=== PATIENT | male | born 1960 | race Caucasian/White ===

== ENCOUNTER 2020-12-01 04:42 | Inpatient (IN) | payer OTHER, MEDICARE ==
[~2020-12-01] VITALS: Ht 185.4 cm; Wt 109.1 kg
[~2020-12-01 04:42] MED LIST: ACAM333T8 PO; ASPI-611 PO; CLON0.3T36 PO; FLUO-167 PO; GLIP10TA11 PO; HYDR-4070 PO; LISI40TA13 PO; METO-411 PO; NORT10CA2 PO; OMEP-50 PO; PRAV80TA3 PO; TERA2CAP4 PO
[2020-12-01] MEDS ORDERED: LORazepam 2 mg/ml vial IV ONE ×3 (05:30→06:35)
[2020-12-01] MEDS ORDERED: normal saline 1000ML IV soln IVB ONE ×2 (05:30→06:35)
[2020-12-01 05:49] LABS: BASOPHILS % (AUTO) 0.2 % (0-1); EOSINOPHILS % (AUTO) 0.1 % (0-6); HEMATOCRIT 40.3 % (42.0-52.0); HEMOGLOBIN 13.4 g/dl (14.0-17.9); LYMPHOCYTES % (AUTO) 6.2 % (21-51); MEAN CORPUSCULAR HEMOGLOBIN 29.8 PG (27.0-31.0); MEAN CORPUSCULAR HGB CONC 33.3 g/dL (33.0-36.5); MEAN CORPUSCULAR VOLUME 89.5 FL (78-98); MEAN PLATELET VOLUME 9.2 FL (7.4-10.4); MONOCYTES # (AUTO) 1.2 X10'3 (0-0.9); MONOCYTES % (AUTO) 7.2 % (2-12); NEUTROPHILS # (AUTO) 13.7 X10'3 (1.8-7.7); NEUTROPHILS % (AUTO) 86.3 % (42-75); PLATELET COUNT 212 X10'3 (140-440); RED CELL DISTRIBUTION WIDTH 15.9 % (11.5-14.5); WHITE BLOOD COUNT 15.9 X10'3 (4.5-11.0)
[2020-12-01] MEDS ORDERED: LORazepam 2 mg/ml vial ONE (06:08)
[2020-12-01 06:10] LABS: ALANINE AMINOTRANSFERASE 24 U/L (12-78); ALBUMIN 3.9 G/DL (3.4-5.0); ALBUMIN/GLOBULIN RATIO 1.1 (1.1-1.5); ALKALINE PHOSPHATASE 67 IU/L (46-116); ANION GAP 19 (8-16); ASPARTATE AMINO TRANSFERASE 32 U/L (10-37); BILIRUBIN,TOTAL 0.5 MG/DL (0.1-1.0); BLOOD UREA NITROGEN 13 MG/DL (7-18); BUN/CREATININE RATIO 11.2 (5.4-32.0); CALCIUM 8.1 MG/DL (8.5-10.1); CHLORIDE 101 MMOL/L (99-107); CREATININE 1.16 MG/DL (0.60-1.10); GLUCOSE 211 MG/DL (70-104); POTASSIUM 4.3 MMOL/L (3.5-5.1); SODIUM 138 MMOL/L (135-145); TOTAL PROTEIN 7.4 G/DL (6.4-8.2); eGFR 64 ML/MIN
[2020-12-01 06:16] LABS: ETHANOL < 0.010 GM/DL (0.0-0.010); LIPASE 57 U/L (73-393)
[2020-12-01] MEDS ORDERED: ondansetron/PF 4mg/2ml inj IV ONE (06:35)
[2020-12-01] MEDS ORDERED: metoprolol succinate 25mg (24-HOUR) SR. Tablet PO ONE (06:50)
[2020-12-01] MEDS ORDERED: cloNIDine 0.1 mg tablet PO ONE (06:50)
[2020-12-01] MEDS ORDERED: hyDRALAzine 10mg tablet PO SCH (06:50)
[2020-12-01] MEDS ORDERED: lisinopril 20mg tablet PO ONE (06:55)
--- NOTE | 2020-12-01 07:10 | NUR ---
Spoke with Dr. Mujica regarding x2 blood pressure medications PO, Dr. mujica stated that they were all ordered because thats what patient takes at home and has not been able to take medications for the last 2 days. Will administer medications as prescribed.
[2020-12-01] MEDS ORDERED: aspirin 81mg tab.chew PO ONE (07:40)
[2020-12-01] MEDS ORDERED: nitroGLYCERIN 0.4mg/hour patch TD ONE (07:40)
[2020-12-01] MEDS ORDERED: potassium Cl 40MEQ/1/2NS 520ml 520 ML IV PRN ×2 (08:05)
[2020-12-01] MEDS ORDERED: ondansetron/PF 4mg/2ml inj IV PRN (08:05)
[2020-12-01] MEDS ORDERED: magnesium Cl slow-release 64mg tablet PO PRN (08:05)
[2020-12-01] MEDS ORDERED: acetaminophen 325mg tablet PO PRN (08:05)
[2020-12-01] MEDS ORDERED: magnesium 2GM in 50ml NS 50 ML IV PRN (08:05)
[2020-12-01] MEDS ORDERED: magnesium 4gm in 100ml NS 100 ML IV PRN (08:05)
[2020-12-01] MEDS ORDERED: potassium Cl 20 mEq SR tablet PO PRN ×2 (08:05)
[2020-12-01 08:36] LABS: CLARITY,URINE CLEAR (Clear); COLOR,URINE YELLOW (Yellow); GLUCOSE, URINE 100 mg/dl (Neg); KETONES,URINE 15 mg/dl (Neg); LEUKOCYTE ESTERASE ,URINE NEGATIVE (Neg); NITRITES, URINE NEGATIVE (Neg); OCCULT BLOOD,URINE NEGATIVE (Neg); PH,URINE 5.5 (4.8-8.0); PROTEIN,URINE 30 mg/dl (Neg); UROBILINOGEN,URINE 0.2 E.U/dL (0.2-1.0)
[2020-12-01 08:37] LABS: UA COLLECTION TYPE VOIDED
[2020-12-01 08:47] LABS: BACTERIA,URINE NONE SEEN /HPF (Neg); MUCUS STRANDS FEW /LPF (Neg); RBC,URINE NONE SEEN /HPF (0-2); SQUAMOUS EPITHELIAL CELL,UR FEW /LPF (FEW)
[2020-12-01 08:48] LABS: FINE GRANULAR CAST 0-3 /LPF (NEGATIVE); WBC,URINE 0-4 /HPF (0-4)
[2020-12-01 08:50] LABS: URINE AMPHETAMINE SCREEN NEGATIVE (Neg); URINE BARBITUATE SCREEN NEGATIVE (Neg); URINE BENZODIAZEPINES SCREEN NEGATIVE (Neg); URINE CANNABINOID SCREEN NEGATIVE (Neg); URINE COCAINE SCREEN NEGATIVE (Neg); URINE METHADONE SCREEN NEGATIVE (Neg); URINE OPIATE SCREEN NEGATIVE (Neg); URINE PHENCYCLIDINE SCREEN NEGATIVE (Neg)
--- NOTE | 2020-12-01 10:15 | NUR ---
report received from ER charge Caitlin RN. All questions answered in preparation to assume pt care on telemetry floor.
[2020-12-01] MEDS ORDERED: HYDR-4069 PO (10:27)
[2020-12-01] MEDS ORDERED: CARV25TA2 PO (10:28)
[2020-12-01 11:30] VITALS: BP 169/96
[2020-12-01] MEDS ORDERED: METF-438 PO (11:36)
[2020-12-01] MEDS ORDERED: thiamine inj. 100 MG in normal saline 100ml IV soln 99 ML IV SCH (14:03)
[2020-12-01] MEDS: LORazepam 1 MG tablet PO PRN ×2 (14:14→20:14)
[2020-12-01 15:00] VITALS: BP 169/90
[2020-12-01] MEDS ORDERED: chlordiazePOXIDE 25mg capsule PO SCH (16:00)
[2020-12-01] MEDS: normal saline 1000ml 1,000 ML IV SCH ×3 (16:15→23:56)
[2020-12-01] MEDS: folic acid 1mg/0.2ml inj IV SCH (16:16)
[2020-12-01] MEDS: multivitamins, therapeutics tablet PO SCH (16:16)
[2020-12-01] MEDS: chlordiazePOXIDE 5mg capsule PO SCH (16:24)
--- NOTE | 2020-12-01 17:39 | NUR ---
Paged Dr. Burden secondary to high SBP. PAGER ID: [phone] MESSAGE: RE: johnson Fair: FM [id number]" BP 176/93. Do you want to do anything prn for HTN? -Taylor #[phone]
[2020-12-01 17:50] VITALS: BP 176/93
[2020-12-01] MEDS: hyDRALAzine 10mg tablet PO SCH (18:04)
--- NOTE | 2020-12-01 18:08 | NUR ---
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 states his left eye always stings and choi at baseline.
--- NOTE | 2020-12-01 18:08 | NUR ---
New order noted for hydralazine. med given.
--- NOTE | 2020-12-01 18:28 | NUR ---
Problems reprioritized. Patient report given, questions answered & plan of care reviewed with Prudence RN.
--- NOTE | 2020-12-01 18:51 | NUR ---
Patient in room PCU 3017. I have received report from TAVO READ and had the opportunity to ask questions and assume patient care.
[2020-12-01 19:58] VITALS: BP 171/93
[2020-12-01] MEDS: K and/or MAG REPLACEMENT MC SCH (20:00)
[2020-12-01] MEDS: glipizide 5mg tablet PO SCH (20:14)
[2020-12-01] MEDS: cloNIDine 0.1 mg tablet PO SCH (20:15)
[2020-12-01] MEDS: metFORMIN 500mg tablet PO SCH (20:15)
[2020-12-01] MEDS: Terazosin 1mg capsule PO SCH (20:17)
[2020-12-01] MEDS: terazosin 5mg capsule PO SCH (20:18)
[2020-12-01] MEDS: nortriptyline 10mg capsule PO SCH (20:18)
[2020-12-01] MEDS: pravastatin 40mg tablet PO SCH (20:21)
[2020-12-01] MEDS ORDERED: thiamine inj. 100 MG in normal saline 100ml IV soln 100 ML IV SCH (21:34)
[2020-12-01 22:00] VITALS: BP 151/81
[2020-12-02 02:00] VITALS: BP 155/84
--- NOTE | 2020-12-02 06:23 | NUR ---
Patient in room PCU 3017. I have received report from YVES READ and had the opportunity to ask questions and assume patient care.
--- NOTE | 2020-12-02 06:31 | NUR ---
Patient in room PCU 3017. I have received report from Leah READ and had the opportunity to ask questions and assume patient care.
[2020-12-02 07:03] LABS: BASOPHILS % (AUTO) 0.7 % (0-1); EOSINOPHILS # (AUTO) 0.2 X10'3 (0-0.9); EOSINOPHILS % (AUTO) 3.8 % (0-6); HEMOGLOBIN 10.7 g/dl (14.0-17.9); MEAN CORPUSCULAR HEMOGLOBIN 30.2 PG (27.0-31.0); MEAN CORPUSCULAR HGB CONC 33.5 g/dL (33.0-36.5); MEAN PLATELET VOLUME 8.9 FL (7.4-10.4); MONOCYTES # (AUTO) 0.6 X10'3 (0-0.9); NEUTROPHILS # (AUTO) 4.7 X10'3 (1.8-7.7); NEUTROPHILS % (AUTO) 71.5 % (42-75); PLATELET COUNT 133 X10'3 (140-440); RED BLOOD COUNT 3.55 X10'6 (4.70-6.10); RED CELL DISTRIBUTION WIDTH 15.3 % (11.5-14.5); WHITE BLOOD COUNT 6.5 X10'3 (4.5-11.0)
[2020-12-02 07:19] LABS: ALBUMIN 2.9 G/DL (3.4-5.0); ANION GAP 10 (8-16); BLOOD UREA NITROGEN 12 MG/DL (7-18); CALCIUM 7.5 MG/DL (8.5-10.1); CHLORIDE 109 MMOL/L (99-107); CHOLESTEROL 132 MG/DL (0-200); CREATININE 0.86 MG/DL (0.60-1.10); GLUCOSE 110 MG/DL (70-104); HDL CHOLESTEROL 67 MG/DL (35-60); LDL CHOLESTEROL 46 MG/DL (50-100); POTASSIUM 3.5 MMOL/L (3.5-5.1); SODIUM 141 MMOL/L (135-145); TOTAL CARBON DIOXIDE 22.3 MMOL/L (24-32); TRIGLYCERIDES 67 MG/DL (20-135); eGFR 90 ML/MIN
[2020-12-02] MEDS: K and/or MAG REPLACEMENT MC SCH ×2 (08:00→20:00)
[2020-12-02] MEDS: normal saline 1000ml 1,000 ML IV SCH ×2 (08:23→17:13)
[2020-12-02] MEDS: FLUoxetine 20mg capsule PO SCH (08:23)
[2020-12-02] MEDS: glipizide 5mg tablet PO SCH ×2 (08:24→17:14)
[2020-12-02] MEDS: multivitamins, therapeutics tablet PO SCH (08:25)
[2020-12-02] MEDS: chlordiazePOXIDE 5mg capsule PO SCH ×2 (08:25→17:19)
[2020-12-02] MEDS: lisinopril 20mg tablet PO SCH (08:32)
[2020-12-02] MEDS: cloNIDine 0.1 mg tablet PO SCH ×2 (08:32→20:36)
[2020-12-02] MEDS: metoprolol succinate 25mg (24-HOUR) SR. Tablet PO SCH (08:32)
[2020-12-02] MEDS: pantoprazole 40mg Tablet.DR PO SCH (08:33)
[2020-12-02] MEDS: metFORMIN 500mg tablet PO SCH ×2 (08:33→20:36)
[2020-12-02] MEDS: hyDRALAzine 10mg tablet PO SCH ×3 (08:33→17:19)
[2020-12-02] MEDS: LORazepam 1 MG tablet PO PRN ×3 (08:41→17:19)
[2020-12-02 11:00] VITALS: BP 175/105
[2020-12-02] MEDS: folic acid 1mg/0.2ml inj IV SCH (11:03)
[2020-12-02] MEDS ORDERED: CHLO25CA10 PO (11:36)
[2020-12-02 14:48] VITALS: BP 155/80
[2020-12-02 18:00] VITALS: BP 201/109
[2020-12-02] MEDS: Terazosin 1mg capsule PO SCH (20:35)
[2020-12-02] MEDS: nortriptyline 10mg capsule PO SCH (20:36)
[2020-12-02] MEDS: pravastatin 40mg tablet PO SCH (20:36)
[2020-12-02 21:00] VITALS: BP 176/103
[2020-12-02] MEDS: terazosin 5mg capsule PO SCH (21:00)
[2020-12-02 22:00] VITALS: BP 187/100
[2020-12-03] MEDS: chlordiazePOXIDE 5mg capsule PO SCH ×2 (00:20→07:36)
[2020-12-03] MEDS: terazosin 5mg capsule PO SCH (00:20)
[2020-12-03 02:24] VITALS: BP 160/82
[2020-12-03] MEDS: normal saline 1000ml 1,000 ML IV SCH (02:58)
[2020-12-03 06:00] VITALS: BP 171/107
--- NOTE | 2020-12-03 06:23 | NUR ---
received report from jose antonio tadeo
[2020-12-03 06:50] LABS: BASOPHILS % (AUTO) 0.7 % (0-1); EOSINOPHILS # (AUTO) 0.4 X10'3 (0-0.9); EOSINOPHILS % (AUTO) 6.6 % (0-6); HEMATOCRIT 37.2 % (42.0-52.0); HEMOGLOBIN 12.5 g/dl (14.0-17.9); LYMPHOCYTES # (AUTO) 1.3 X10'3 (1.1-4.8); LYMPHOCYTES % (AUTO) 24.9 % (21-51); MEAN CORPUSCULAR HEMOGLOBIN 30.5 PG (27.0-31.0); MEAN CORPUSCULAR HGB CONC 33.6 g/dL (33.0-36.5); MEAN CORPUSCULAR VOLUME 90.7 FL (78-98); MEAN PLATELET VOLUME 9.5 FL (7.4-10.4); MONOCYTES # (AUTO) 0.5 X10'3 (0-0.9); MONOCYTES % (AUTO) 9.7 % (2-12); NEUTROPHILS # (AUTO) 3.1 X10'3 (1.8-7.7); NEUTROPHILS % (AUTO) 58.1 % (42-75); PLATELET COUNT 151 X10'3 (140-440); RED CELL DISTRIBUTION WIDTH 15.5 % (11.5-14.5); WHITE BLOOD COUNT 5.3 X10'3 (4.5-11.0)
[2020-12-03 06:55] LABS: ALBUMIN 3.4 G/DL (3.4-5.0); ANION GAP 11 (8-16); BLOOD UREA NITROGEN 7 MG/DL (7-18); BUN/CREATININE RATIO 7.6 (5.4-32.0); CALCIUM 8.3 MG/DL (8.5-10.1); CHLORIDE 106 MMOL/L (99-107); CREATININE 0.92 MG/DL (0.60-1.10); GLUCOSE 124 MG/DL (70-104); MAGNESIUM 1.9 MG/DL (1.5-2.4); POTASSIUM 3.5 MMOL/L (3.5-5.1); SODIUM 142 MMOL/L (135-145); TOTAL CARBON DIOXIDE 24.8 MMOL/L (24-32); eGFR 83 ML/MIN
[2020-12-03] MEDS: K and/or MAG REPLACEMENT MC SCH (07:19)
[2020-12-03] MEDS: metoprolol succinate 25mg (24-HOUR) SR. Tablet PO SCH (07:31)
[2020-12-03] MEDS: metFORMIN 500mg tablet PO SCH (07:32)
[2020-12-03] MEDS: lisinopril 20mg tablet PO SCH (07:32)
[2020-12-03] MEDS: hyDRALAzine 10mg tablet PO SCH (07:33)
[2020-12-03] MEDS: pantoprazole 40mg Tablet.DR PO SCH (07:33)
[2020-12-03] MEDS: multivitamins, therapeutics tablet PO SCH (07:33)
[2020-12-03] MEDS: FLUoxetine 20mg capsule PO SCH (07:33)
[2020-12-03] MEDS: cloNIDine 0.1 mg tablet PO SCH (07:35)
[2020-12-03] MEDS: glipizide 5mg tablet PO SCH (07:35)
[2020-12-03 07:40] VITALS: BP 193/115
--- NOTE | 2020-12-03 07:41 | NUR ---
not all medications scanned into [facility], checked all meds prior to admin
[2020-12-03] MEDS ORDERED: folic acid 1mg tablet PO SCH (08:00)
[2020-12-03] MEDS ORDERED: thiamine 100mg tablet PO SCH (08:00)
[2020-12-03 09:43] VITALS: BP 155/84
--- NOTE | 2020-12-03 11:40 | NUR ---
PT D/C WITH INSTRUCTIONS, UNDERSTANDING OF INSTRUCTIONS, AND W/ALL BELONGINGS INCLUDING HOME MEDICATION IN WHEELCHAIR ACCOMPANIED BY NURSING STAFF IN WHEELCHAIR TO CAB TO GO HOME AND F/U W/PCP
== END 2020-12-03 11:15 | disposition home or self-care (01) | DRG 897 ==
LOC: ER 04:43 → ED HOLD 08:06 → PCU 3S 12:19
PROVIDERS: ADMIT Internal Medicine; ATTEND Internal Medicine
PROC: 5A09357 Assistance with Respiratory Ventilation, Less than 24 Consecutive Hours, Continuous Positive Airway Pressure (ICD-10-PCS; principal; 2020-12-02)
PROC: 5A09357 Assistance with Respiratory Ventilation, Less than 24 Consecutive Hours, Continuous Positive Airway Pressure (ICD-10-PCS; 2020-12-03)
DX: F10.230 Alcohol dependence with withdrawal, uncomplicated (principal); E11.9 Type 2 diabetes mellitus without complications; E78.5 Hyperlipidemia, unspecified; F32.9 Major depressive disorder, single episode, unspecified; F41.9 Anxiety disorder, unspecified; G47.30 Sleep apnea, unspecified; R77.8 Other specified abnormalities of plasma proteins; I10 Essential (primary) hypertension; K21.9 Gastro-esophageal reflux disease without esophagitis; N40.0 Benign prostatic hyperplasia without lower urinary tract symptoms; Z79.84 Long term (current) use of oral hypoglycemic drugs; Z86.79 Personal history of other diseases of the circulatory system; Z87.891 Personal history of nicotine dependence; Z95.810 Presence of automatic (implantable) cardiac defibrillator; Z88.0 Allergy status to penicillin; Z81.0 Family history of intellectual disabilities; Z80.42 Family history of malignant neoplasm of prostate
CPT/HCPCS: 36415; 71045; 80048; 80053; 80061; 80305; 80320; 81001; 82948; 83690; 83735; 84484; 85025; 87081; 93005; 96375; 96376; 99285; G0378; J2060; J2405; J3411; J3490; J7030

== ENCOUNTER 2021-01-11 13:13 | Inpatient (IN) | payer OTHER, MEDICARE ==
[~2021-01-11] VITALS: Ht 188 cm; Wt 128.4 kg
[~2021-01-11 13:13] MED LIST changes: -ACAM333T8 PO; -ASPI-611 PO; +CHLO25CA10 PO; +HYDR-4069 PO; -HYDR-4070 PO; +METF-438 PO
[2021-01-11] MEDS ORDERED: folic acid 1mg/0.2ml inj IV ONE ×2 (13:25→14:20)
[2021-01-11] MEDS ORDERED: thiamine 100mg/ml 2ml inj. IV ONE ×2 (13:25→14:20)
[2021-01-11] MEDS ORDERED: normal saline 1000ML IV soln IVB ONE (13:25)
[2021-01-11] MEDS ORDERED: LORazepam 2 mg/ml vial IV ONE (13:50)
[2021-01-11] MEDS ORDERED: LIDOcaine 1% W/epiNEPHrine 1:200,000 10ml vial IJ ONE (13:50)
[2021-01-11] MEDS ORDERED: normal saline 1000ml 1,000 ML IV ONE (13:50)
[2021-01-11] MEDS ORDERED: bacitracin 15gm ointment TP ONE (13:50)
[2021-01-11 13:51] LABS: ALANINE AMINOTRANSFERASE 24 U/L (12-78); ALBUMIN 3.5 G/DL (3.4-5.0); ALKALINE PHOSPHATASE 90 IU/L (46-116); ANION GAP 15 (8-16); ASPARTATE AMINO TRANSFERASE 20 U/L (10-37); BILIRUBIN,TOTAL 0.3 MG/DL (0.1-1.0); BLOOD UREA NITROGEN 13 MG/DL (7-18); BUN/CREATININE RATIO 9.6 (5.4-32.0); CALCIUM 8.6 MG/DL (8.5-10.1); CHLORIDE 103 MMOL/L (99-107); CREATININE 1.35 MG/DL (0.60-1.10); GLUCOSE 306 MG/DL (70-104); POTASSIUM 4.4 MMOL/L (3.5-5.1); SODIUM 136 MMOL/L (135-145); TOTAL CARBON DIOXIDE 18.4 MMOL/L (24-32); eGFR 54 ML/MIN
[2021-01-11 13:58] LABS: ETHANOL 0.056 GM/DL (0.0-0.010); MAGNESIUM 2.1 MG/DL (1.5-2.4)
[2021-01-11 14:16] LABS: BASOPHILS % (AUTO) 0.6 % (0-1); EOSINOPHILS # (AUTO) 0.1 X10'3 (0-0.9); EOSINOPHILS % (AUTO) 1.1 % (0-6); HEMATOCRIT 39.3 % (42.0-52.0); HEMOGLOBIN 12.8 g/dl (14.0-17.9); LYMPHOCYTES # (AUTO) 1.2 X10'3 (1.1-4.8); LYMPHOCYTES % (AUTO) 14.6 % (21-51); MEAN CORPUSCULAR HEMOGLOBIN 28.7 PG (27.0-31.0); MEAN CORPUSCULAR HGB CONC 32.5 g/dL (33.0-36.5); MEAN CORPUSCULAR VOLUME 88.3 FL (78-98); MEAN PLATELET VOLUME 9.5 FL (7.4-10.4); MONOCYTES # (AUTO) 0.5 X10'3 (0-0.9); MONOCYTES % (AUTO) 6.5 % (2-12); NEUTROPHILS # (AUTO) 6.2 X10'3 (1.8-7.7); NEUTROPHILS % (AUTO) 77.2 % (42-75); PLATELET COUNT 178 X10'3 (140-440); RED BLOOD COUNT 4.46 X10'6 (4.70-6.10); RED CELL DISTRIBUTION WIDTH 15.8 % (11.5-14.5); WHITE BLOOD COUNT 8.1 X10'3 (4.5-11.0)
[2021-01-11] MEDS: LORazepam 2 mg/ml vial IV ONE ×2 (14:41→15:31)
[2021-01-11] MEDS ORDERED: ondansetron/PF 4mg/2ml inj IV PRN (16:10)
[2021-01-11] MEDS ORDERED: potassium Cl 40MEQ/1/2NS 520ml 520 ML IV PRN ×2 (16:10)
[2021-01-11] MEDS ORDERED: magnesium hydroxide 30ml (MOM) UD suspension PO PRN (16:10)
[2021-01-11] MEDS ORDERED: mag hydrox/Alum hydrox/simeth 30ml oral suspension PO PRN (16:10)
[2021-01-11] MEDS ORDERED: magnesium 2GM in 50ml NS 50 ML IV PRN (16:10)
[2021-01-11] MEDS ORDERED: magnesium 4gm in 100ml NS 100 ML IV PRN (16:10)
[2021-01-11] MEDS ORDERED: potassium Cl 20 mEq SR tablet PO PRN ×2 (16:10)
[2021-01-11] MEDS ORDERED: magnesium Cl slow-release 64mg tablet PO PRN (16:10)
[2021-01-11] MEDS ORDERED: acetaminophen 325mg tablet PO PRN ×2 (16:10)
[2021-01-11] MEDS ORDERED: haloperidol 5mg tablet PO PRN (16:15)
[2021-01-11] MEDS ORDERED: haloperidol lactate 5mg/ml inj IM PRN (16:15)
[2021-01-11] MEDS ORDERED: LORazepam 2 mg/ml vial IV PRN (16:15)
[2021-01-11] MEDS ORDERED: insulin Lispro (HumaLOG) vial - multi-dose SQ SCH (16:35)
[2021-01-11] MEDS ORDERED: dextrose 50%-water 50ml dispensing syringe IV PRN ×2 (16:35)
[2021-01-11] MEDS ORDERED: MESSAGE TO PHARMACY PO ONE (16:35)
[2021-01-11] MEDS ORDERED: dextrose ORAL solution 15 GM/59 ML bottle PO PRN ×2 (16:35)
[2021-01-11] MEDS ORDERED: glucagon, human recombinant 1mg kit SUBCUT PRN (16:35)
[2021-01-11] MEDS: normal saline 1000ml 1,000 ML IV SCH (16:51)
[2021-01-11 17:31] LABS: HEMOGLOBIN A1C 7.3 % (4.5-6.2)
[2021-01-11] MEDS: heparin, porcine 5000 units/ml vial SQ SCH (19:33)
[2021-01-11] MEDS: docusate sod 100mg capsule PO SCH (19:33)
[2021-01-11] MEDS: K and/or MAG REPLACEMENT MC SCH (19:34)
[2021-01-11] MEDS ORDERED: temazepam 15mg capsule PO PRN (21:00)
[2021-01-11] MEDS: insulin glargine (Lantus) pen - multi-dose SQ SCH (21:00)
--- NOTE | 2021-01-12 02:30 | NUR ---
called dr Giles for blood pressure elevation. new order for clonidine 0.3
[2021-01-12] MEDS ORDERED: cloNIDine 0.1 mg tablet PO STA (02:46)
[2021-01-12] MEDS: normal saline 1000ml 1,000 ML IV SCH ×3 (02:53→22:10)
[2021-01-12 03:25] LABS: BASOPHILS % (AUTO) 0.4 % (0-1); EOSINOPHILS # (AUTO) 0.3 X10'3 (0-0.9); EOSINOPHILS % (AUTO) 4.5 % (0-6); HEMATOCRIT 33.7 % (42.0-52.0); HEMOGLOBIN 11.3 g/dl (14.0-17.9); LYMPHOCYTES # (AUTO) 1.4 X10'3 (1.1-4.8); LYMPHOCYTES % (AUTO) 22.7 % (21-51); MEAN CORPUSCULAR HEMOGLOBIN 29.9 PG (27.0-31.0); MEAN CORPUSCULAR HGB CONC 33.4 g/dL (33.0-36.5); MEAN CORPUSCULAR VOLUME 89.4 FL (78-98); MEAN PLATELET VOLUME 9.2 FL (7.4-10.4); MONOCYTES # (AUTO) 0.6 X10'3 (0-0.9); MONOCYTES % (AUTO) 10.4 % (2-12); NEUTROPHILS # (AUTO) 3.8 X10'3 (1.8-7.7); PLATELET COUNT 144 X10'3 (140-440); RED BLOOD COUNT 3.77 X10'6 (4.70-6.10); RED CELL DISTRIBUTION WIDTH 15.5 % (11.5-14.5); WHITE BLOOD COUNT 6.1 X10'3 (4.5-11.0)
[2021-01-12 03:45] LABS: ALANINE AMINOTRANSFERASE 20 U/L (12-78); ALBUMIN 2.9 G/DL (3.4-5.0); ALBUMIN/GLOBULIN RATIO 0.9 (1.1-1.5); ALKALINE PHOSPHATASE 77 IU/L (46-116); ANION GAP 11 (8-16); ASPARTATE AMINO TRANSFERASE 19 U/L (10-37); BILIRUBIN,TOTAL 0.6 MG/DL (0.1-1.0); BLOOD UREA NITROGEN 16 MG/DL (7-18); BUN/CREATININE RATIO 14.2 (5.4-32.0); CALCIUM 7.6 MG/DL (8.5-10.1); CHLORIDE 108 MMOL/L (99-107); CREATININE 1.13 MG/DL (0.60-1.10); GLUCOSE 160 MG/DL (70-104); LIPASE 55 U/L (73-393); MAGNESIUM 1.9 MG/DL (1.5-2.4); PHOSPHORUS 3.1 MG/DL (2.3-4.5); POTASSIUM 4.2 MMOL/L (3.5-5.1); SODIUM 141 MMOL/L (135-145); TOTAL CARBON DIOXIDE 22.1 MMOL/L (24-32); eGFR 66 ML/MIN
--- NOTE | 2021-01-12 06:23 | NUR ---
Patient in room ED 2. I have received report from YOU READ and had the opportunity to ask questions and assume patient care.
--- NOTE | 2021-01-12 06:35 | NUR ---
Patient in room ED 2. I have received report from John brady and had the opportunity to ask questions and assume patient care.
[2021-01-12 07:30] VITALS: BP 205/139
[2021-01-12] MEDS: docusate sod 100mg capsule PO SCH ×2 (07:49→20:00)
[2021-01-12] MEDS: heparin, porcine 5000 units/ml vial SQ SCH ×2 (07:50→20:29)
[2021-01-12] MEDS: LORazepam 1 MG tablet PO PRN ×3 (07:51→16:32)
[2021-01-12] MEDS: K and/or MAG REPLACEMENT MC SCH ×2 (08:00→20:00)
--- NOTE | 2021-01-12 08:09 | NUR ---
PAGER ID: [phone] MESSAGE: JESSICA READ [id number] RE: GUERITA Gallagher [id number]. PLEASE ADDRESS MED REC. PTS BP 205/139. THANK YOU
[2021-01-12] MEDS: cloNIDine 0.1 mg tablet PO SCH ×2 (09:26→20:27)
[2021-01-12] MEDS: pantoprazole 40mg Tablet.DR PO SCH (09:26)
[2021-01-12] MEDS: lisinopril 20mg tablet PO SCH (09:28)
[2021-01-12] MEDS ORDERED: hyDRALAzine 10mg tablet PO PRN (09:55)
[2021-01-12] MEDS: metoprolol succinate 25mg (24-HOUR) SR. Tablet PO SCH (10:34)
[2021-01-12 11:00] VITALS: BP 196/118
[2021-01-12] MEDS ORDERED: morphine 2 MG/ML inj. syringe IV PRN (12:00)
[2021-01-12] MEDS ORDERED: HYDROcodone/acetaminophen 5mg/325mg tablet PO PRN (12:00)
[2021-01-12] MEDS: hyDRALAzine 10mg tablet PO SCH ×2 (12:30→18:00)
[2021-01-12 13:00] VITALS: BP 164/94
[2021-01-12 15:00] VITALS: BP 169/98
--- NOTE | 2021-01-12 15:24 | NUR ---
Noted pt with T2DM, well controlled with A1c 7.3%. Written DM education with RD contact information placed in patient's chart. Will continue to follow. Addendum: 01/12/21 at [address] Amended: Links added.
[2021-01-12 19:00] VITALS: BP 180/107
--- NOTE | 2021-01-12 19:03 | NUR ---
Problems reprioritized. Patient report given, questions answered & plan of care reviewed with Carina brady.
[2021-01-12] MEDS ORDERED: nortriptyline 10mg capsule PO SCH (21:00)
[2021-01-12] MEDS ORDERED: terazosin 5mg capsule PO SCH (21:00)
[2021-01-12] MEDS: insulin glargine (Lantus) pen - multi-dose SQ SCH (21:00)
[2021-01-12] MEDS ORDERED: Terazosin 1mg capsule PO SCH (21:00)
[2021-01-12] MEDS ORDERED: atorvastatin 20mg tablet PO SCH (21:00)
[2021-01-12 23:00] VITALS: BP 134/65
--- NOTE | 2021-01-13 02:49 | NUR ---
Patient refused vitals signs, wanted to sleep
[2021-01-13 06:00] VITALS: BP 212/121
[2021-01-13 06:24] LABS: BASOPHILS % (AUTO) 0.7 % (0-1); EOSINOPHILS # (AUTO) 0.5 X10'3 (0-0.9); EOSINOPHILS % (AUTO) 9.3 % (0-6); HEMATOCRIT 34.8 % (42.0-52.0); HEMOGLOBIN 11.6 g/dl (14.0-17.9); LYMPHOCYTES # (AUTO) 1.3 X10'3 (1.1-4.8); LYMPHOCYTES % (AUTO) 25.7 % (21-51); MEAN CORPUSCULAR HEMOGLOBIN 29.8 PG (27.0-31.0); MEAN CORPUSCULAR HGB CONC 33.3 g/dL (33.0-36.5); MEAN CORPUSCULAR VOLUME 89.6 FL (78-98); MEAN PLATELET VOLUME 9.6 FL (7.4-10.4); MONOCYTES # (AUTO) 0.5 X10'3 (0-0.9); MONOCYTES % (AUTO) 9.9 % (2-12); NEUTROPHILS # (AUTO) 2.8 X10'3 (1.8-7.7); NEUTROPHILS % (AUTO) 54.4 % (42-75); PLATELET COUNT 136 X10'3 (140-440); RED BLOOD COUNT 3.88 X10'6 (4.70-6.10); RED CELL DISTRIBUTION WIDTH 15.4 % (11.5-14.5); WHITE BLOOD COUNT 5.2 X10'3 (4.5-11.0)
[2021-01-13 06:25] LABS: ALANINE AMINOTRANSFERASE 18 U/L (12-78); ALBUMIN 2.8 G/DL (3.4-5.0); ALKALINE PHOSPHATASE 87 IU/L (46-116); ANION GAP 10 (8-16); ASPARTATE AMINO TRANSFERASE 18 U/L (10-37); BILIRUBIN,TOTAL 0.5 MG/DL (0.1-1.0); BLOOD UREA NITROGEN 9 MG/DL (7-18); BUN/CREATININE RATIO 9.3 (5.4-32.0); CALCIUM 8.3 MG/DL (8.5-10.1); CHLORIDE 106 MMOL/L (99-107); CREATININE 0.97 MG/DL (0.60-1.10); GLUCOSE 157 MG/DL (70-104); LIPASE < 50 U/L (73-393); MAGNESIUM 2.1 MG/DL (1.5-2.4); PHOSPHORUS 3.2 MG/DL (2.3-4.5); POTASSIUM 3.9 MMOL/L (3.5-5.1); SODIUM 139 MMOL/L (135-145); TOTAL CARBON DIOXIDE 22.6 MMOL/L (24-32); TOTAL PROTEIN 5.6 G/DL (6.4-8.2); eGFR 78 ML/MIN
--- NOTE | 2021-01-13 06:25 | NUR ---
Patient in room PCU 3026. I have received report from Carina READ and had the opportunity to ask questions and assume patient care.
[2021-01-13] MEDS: cloNIDine 0.1 mg tablet PO SCH (07:35)
[2021-01-13] MEDS: metoprolol succinate 25mg (24-HOUR) SR. Tablet PO SCH (07:36)
[2021-01-13] MEDS: lisinopril 20mg tablet PO SCH (07:37)
[2021-01-13] MEDS: hyDRALAzine 10mg tablet PO SCH (07:38)
[2021-01-13] MEDS: pantoprazole 40mg Tablet.DR PO SCH (07:38)
[2021-01-13] MEDS: heparin, porcine 5000 units/ml vial SQ SCH (07:40)
[2021-01-13] MEDS: K and/or MAG REPLACEMENT MC SCH (07:42)
[2021-01-13] MEDS: docusate sod 100mg capsule PO SCH (07:44)
[2021-01-13] MEDS ORDERED: FLUoxetine 20mg capsule PO SCH (08:00)
[2021-01-13] MEDS: normal saline 1000ml 1,000 ML IV SCH (08:10)
[2021-01-13] MEDS: LORazepam 1 MG tablet PO PRN (08:23)
[2021-01-13 09:23] VITALS: BP 138/85
[2021-01-13] MEDS ORDERED: GLIP10TA11 PO (09:42)
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
== END 2021-01-13 11:20 | disposition home or self-care (01) | DRG 605 ==
LOC: ER 13:14 → UNDOADMIN 16:10 → ED HOLD 16:10 → PCU 3S 01-12 07:10
PROVIDERS: ADMIT Internal Medicine; ATTEND Internal Medicine
PROC: 0HQ0XZZ Repair Scalp Skin, External Approach (ICD-10-PCS; principal; 2021-01-11)
DX: S01.81XA Laceration without foreign body of other part of head, initial encounter (principal); F10.139 Alcohol abuse with withdrawal, unspecified; F41.9 Anxiety disorder, unspecified; G47.30 Sleep apnea, unspecified; G51.0 Bell's palsy; E11.9 Type 2 diabetes mellitus without complications; W18.39XA Other fall on same level, initial encounter; I10 Essential (primary) hypertension; E66.9 Obesity, unspecified; I25.10 Atherosclerotic heart disease of native coronary artery without angina pectoris; Y93.01 Activity, walking, marching and hiking; Z95.0 Presence of cardiac pacemaker; Z95.810 Presence of automatic (implantable) cardiac defibrillator; Y92.098 Other place in other non-institutional residence as the place of occurrence of the external cause; Y99.8 Other external cause status; Z88.0 Allergy status to penicillin; Z81.8 Family history of other mental and behavioral disorders; Z82.49 Family history of ischemic heart disease and other diseases of the circulatory system; Z80.42 Family history of malignant neoplasm of prostate; Z68.36 Body mass index [BMI] 36.0-36.9, adult
CPT/HCPCS: 36415; 70450; 71045; 80053; 80320; 82948; 83036; 83605; 83690; 83735; 83880; 84100; 85025; 85610; 87040; 93005; 96374; 96376; 97161; 97530; 99285; G0378; J1644; J1815; J2060; J3411; J3490; J7030

== ENCOUNTER 2021-01-29 11:20 | Inpatient (IN) | payer OTHER, MEDICARE ==
[~2021-01-29] VITALS: Ht 185.4 cm; Wt 104.5 kg
[~2021-01-29 11:20] MED LIST changes: -CHLO25CA10 PO
[2021-01-29] MEDS ORDERED: normal saline 1000ML IV soln IVB ONE (11:35)
[2021-01-29 12:37] LABS: ALANINE AMINOTRANSFERASE 20 U/L (12-78); ALBUMIN 3.5 G/DL (3.4-5.0); ALBUMIN/GLOBULIN RATIO 1.1 (1.1-1.5); ALKALINE PHOSPHATASE 100 IU/L (46-116); ANION GAP 15 (8-16); ASPARTATE AMINO TRANSFERASE 21 U/L (10-37); BILIRUBIN,TOTAL 0.8 MG/DL (0.1-1.0); BLOOD UREA NITROGEN 9 MG/DL (7-18); BUN/CREATININE RATIO 5.6 (5.4-32.0); CALCIUM 8.3 MG/DL (8.5-10.1); CHLORIDE 103 MMOL/L (99-107); CREATININE 1.62 MG/DL (0.60-1.10); GLUCOSE 287 MG/DL (70-104); POTASSIUM 4.4 MMOL/L (3.5-5.1); SODIUM 139 MMOL/L (135-145); TOTAL CARBON DIOXIDE 20.9 MMOL/L (24-32); TOTAL PROTEIN 6.7 G/DL (6.4-8.2); eGFR 43 ML/MIN
[2021-01-29 12:38] LABS: ETHANOL < 0.010 GM/DL (0.0-0.010)
[2021-01-29 12:41] LABS: BASOPHILS % (AUTO) 0.3 % (0-1); EOSINOPHILS % (AUTO) 0.1 % (0-6); HEMATOCRIT 38.5 % (42.0-52.0); HEMOGLOBIN 12.7 g/dl (14.0-17.9); LYMPHOCYTES # (AUTO) 0.3 X10'3 (1.1-4.8); LYMPHOCYTES % (AUTO) 5.3 % (21-51); MEAN CORPUSCULAR HEMOGLOBIN 29.9 PG (27.0-31.0); MEAN CORPUSCULAR HGB CONC 32.9 g/dL (33.0-36.5); MEAN CORPUSCULAR VOLUME 90.7 FL (78-98); MEAN PLATELET VOLUME 8.6 FL (7.4-10.4); MONOCYTES # (AUTO) 0.4 X10'3 (0-0.9); MONOCYTES % (AUTO) 7.1 % (2-12); NEUTROPHILS # (AUTO) 5.3 X10'3 (1.8-7.7); NEUTROPHILS % (AUTO) 87.2 % (42-75); PLATELET COUNT 153 X10'3 (140-440); RED BLOOD COUNT 4.24 X10'6 (4.70-6.10); RED CELL DISTRIBUTION WIDTH 16.8 % (11.5-14.5)
[2021-01-29 12:42] LABS: URINE AMPHETAMINE SCREEN NEGATIVE (Neg); URINE BARBITUATE SCREEN NEGATIVE (Neg); URINE BENZODIAZEPINES SCREEN NEGATIVE (Neg); URINE CANNABINOID SCREEN NEGATIVE (Neg); URINE COCAINE SCREEN NEGATIVE (Neg); URINE METHADONE SCREEN NEGATIVE (Neg); URINE OPIATE SCREEN NEGATIVE (Neg); URINE PHENCYCLIDINE SCREEN NEGATIVE (Neg)
[2021-01-29 13:08] LABS: CLARITY,URINE CLOUDY (Clear); COLOR,URINE STRAW (Yellow); KETONES,URINE 15 mg/dl (Neg); UA COLLECTION TYPE VOIDED
[2021-01-29 13:09] LABS: GLUCOSE, URINE >=1000 mg/dl (Neg); LEUKOCYTE ESTERASE ,URINE NEGATIVE (Neg); NITRITES, URINE NEGATIVE (Neg); OCCULT BLOOD,URINE NEGATIVE (Neg); PH,URINE 6.5 (4.8-8.0); PROTEIN,URINE 30 mg/dl (Neg)
[2021-01-29 13:13] LABS: FINE GRANULAR CAST 0-3 /LPF (NEGATIVE); MUCUS STRANDS MANY /LPF (Neg); SQUAMOUS EPITHELIAL CELL,UR MODERATE /LPF (FEW); TRANSITIONAL EPI CELLS,URINE FEW /HPF
[2021-01-29 13:15] LABS: CELLULAR CAST 0-4 /LPF (NEGATIVE); COARSE GRANULAR CAST 0-3 /LPF (NEGATIVE)
[2021-01-29 13:16] LABS: BACTERIA,URINE NONE SEEN /HPF (Neg); RBC,URINE 0-2 /HPF (0-2); RENAL CELLS, URINE FEW /HPF; WBC,URINE 0-4 /HPF (0-4)
[2021-01-29] MEDS ORDERED: aspirin 81mg tab.chew PO ONE (14:50)
[2021-01-29] MEDS ORDERED: heparin 10,000 units/1 ML INJ IV ONE (15:15)
[2021-01-29 15:16] LABS: D-DIMER 0.71 MG/L FEU (0-0.50)
[2021-01-29] MEDS ORDERED: GABA300C PO (15:32)
[2021-01-29 15:34] LABS: PARTIAL THROMBOPLASTIN TIME 24 SECONDS (22-32)
[2021-01-29] MEDS ORDERED: magnesium hydroxide 30ml (MOM) UD suspension PO PRN (15:35)
[2021-01-29] MEDS ORDERED: HYDROcodone/acetaminophen 5mg/325mg tablet PO PRN (15:35)
[2021-01-29] MEDS ORDERED: acetaminophen 325mg tablet PO PRN (15:35)
[2021-01-29] MEDS ORDERED: mag hydrox/Alum hydrox/simeth 30ml oral suspension PO PRN (15:35)
[2021-01-29] MEDS ORDERED: magnesium Cl slow-release 64mg tablet PO PRN (15:35)
[2021-01-29] MEDS ORDERED: magnesium 2GM in 50ml NS 50 ML IV ONE ×2 (15:35→16:35)
[2021-01-29] MEDS ORDERED: morphine 2 MG/ML inj. syringe IV PRN ×2 (15:35)
[2021-01-29] MEDS ORDERED: magnesium 2GM in 50ml NS 50 ML IV PRN (15:35)
[2021-01-29] MEDS ORDERED: insulin Lispro (HumaLOG) vial - multi-dose SQ SCH (15:35)
[2021-01-29] MEDS ORDERED: dextrose 50%-water 50ml dispensing syringe IV PRN ×2 (15:35)
[2021-01-29] MEDS ORDERED: glucagon, human recombinant 1mg kit SUBCUT PRN (15:35)
[2021-01-29] MEDS ORDERED: ondansetron/PF 4mg/2ml inj IV PRN (15:35)
[2021-01-29] MEDS ORDERED: potassium Cl 20 mEq SR tablet PO PRN ×2 (15:35)
[2021-01-29] MEDS ORDERED: MESSAGE TO PHARMACY PO ONE (15:35)
[2021-01-29] MEDS ORDERED: potassium Cl 40MEQ/1/2NS 520ml 520 ML IV PRN ×2 (15:35)
[2021-01-29] MEDS ORDERED: magnesium 4gm in 100ml NS 100 ML IV PRN (15:35)
[2021-01-29] MEDS ORDERED: dextrose ORAL solution 15 GM/59 ML bottle PO PRN ×2 (15:35)
[2021-01-29] MEDS ORDERED: iohexol 350MG/ML 100ml bottle IV ONE (15:39)
[2021-01-29] MEDS ORDERED: GLIP10TA11 PO (15:42)
[2021-01-29] MEDS: heparin 25,000 UNIT/250ml bag 250 ML IV SCH (15:43)
[2021-01-29] MEDS: MESSAGE TO NURSING PO NR (16:05)
[2021-01-29] MEDS ORDERED: LORazepam 2 mg/ml vial IV ONE (16:15)
[2021-01-29] MEDS ORDERED: thiamine 100mg/ml 2ml inj. IV ONE (16:15)
[2021-01-29] MEDS ORDERED: folic acid 1mg/0.2ml inj IV ONE (16:15)
[2021-01-29] MEDS ORDERED: thiamine inj. 100 MG in normal saline 100ml IV soln 100 ML IV ONE (16:30)
[2021-01-29] MEDS: hyDRALAzine 10mg tablet PO SCH (18:55)
--- NOTE | 2021-01-29 19:40 | NUR ---
TROP 2.10; NOTIFIED
[2021-01-29] MEDS: K and/or MAG REPLACEMENT MC SCH (20:08)
[2021-01-29] MEDS: insulin glargine (Lantus) pen - multi-dose SQ SCH (20:09)
--- NOTE | 2021-01-29 20:39 | NUR ---
PAGED AGAIN FOR ATIVAN AND CIWA PROTOCOL/TROP NOTIFICATION.
[2021-01-29] MEDS: nortriptyline 10mg capsule PO SCH (21:00)
[2021-01-29] MEDS: Terazosin 1mg capsule PO SCH (21:00)
[2021-01-29] MEDS: cloNIDine 0.1 mg tablet PO SCH (21:58)
[2021-01-29] MEDS: docusate sod 100mg capsule PO SCH (21:58)
[2021-01-29] MEDS: atorvastatin 20mg tablet PO SCH (21:59)
[2021-01-29] MEDS ORDERED: haloperidol 5mg tablet PO PRN (23:35)
[2021-01-29] MEDS ORDERED: haloperidol lactate 5mg/ml inj IM PRN (23:35)
[2021-01-30] MEDS: heparin 25,000 UNIT/250ml bag 250 ML IV SCH ×2 (00:19→14:39)
[2021-01-30 03:57] LABS: BASOPHILS % (AUTO) 0.7 % (0-1); EOSINOPHILS # (AUTO) 0.1 X10'3 (0-0.9); EOSINOPHILS % (AUTO) 3.3 % (0-6); HEMATOCRIT 34.7 % (42.0-52.0); HEMOGLOBIN 11.6 g/dl (14.0-17.9); LYMPHOCYTES # (AUTO) 1.2 X10'3 (1.1-4.8); LYMPHOCYTES % (AUTO) 28.1 % (21-51); MEAN CORPUSCULAR HEMOGLOBIN 29.9 PG (27.0-31.0); MEAN CORPUSCULAR HGB CONC 33.4 g/dL (33.0-36.5); MEAN CORPUSCULAR VOLUME 89.5 FL (78-98); MEAN PLATELET VOLUME 8.6 FL (7.4-10.4); MONOCYTES # (AUTO) 0.5 X10'3 (0-0.9); MONOCYTES % (AUTO) 12.5 % (2-12); NEUTROPHILS # (AUTO) 2.3 X10'3 (1.8-7.7); NEUTROPHILS % (AUTO) 55.4 % (42-75); PLATELET COUNT 137 X10'3 (140-440); RED BLOOD COUNT 3.88 X10'6 (4.70-6.10); RED CELL DISTRIBUTION WIDTH 16.9 % (11.5-14.5); WHITE BLOOD COUNT 4.1 X10'3 (4.5-11.0)
[2021-01-30 04:02] LABS: CHLORIDE 104 MMOL/L (99-107); GLUCOSE 151 MG/DL (70-104); SODIUM 138 MMOL/L (135-145); TOTAL CARBON DIOXIDE 24.5 MMOL/L (24-32)
[2021-01-30 04:03] LABS: ALANINE AMINOTRANSFERASE 19 U/L (12-78); ALBUMIN 3.1 G/DL (3.4-5.0); ALKALINE PHOSPHATASE 94 IU/L (46-116); ANION GAP 10 (8-16); ASPARTATE AMINO TRANSFERASE 24 U/L (10-37); BILIRUBIN,TOTAL 0.9 MG/DL (0.1-1.0); BLOOD UREA NITROGEN 14 MG/DL (7-18); BUN/CREATININE RATIO 10.6 (5.4-32.0); CALCIUM 8.3 MG/DL (8.5-10.1); CREATININE 1.32 MG/DL (0.60-1.10); TOTAL PROTEIN 6.1 G/DL (6.4-8.2); eGFR 55 ML/MIN
[2021-01-30 04:05] LABS: AMYLASE 50 U/L (25-115); CHOL/HDL RATIO 1.8 (0.00-4.99); CHOLESTEROL 180 MG/DL (0-200); HDL CHOLESTEROL 101 MG/DL (35-60); LDL CHOLESTEROL 56 MG/DL (50-100); LIPASE 81 U/L (73-393); MAGNESIUM 2.3 MG/DL (1.5-2.4); PHOSPHORUS 3.8 MG/DL (2.3-4.5); TRIGLYCERIDES 74 MG/DL (20-135)
--- NOTE | 2021-01-30 05:33 | NUR ---
PT IS FEELING MUCH BETTER THIS AM; GAVE FACE CLOTH TO CLEAN HIS FACE; PT VSS; STILL ON P[employer]ING [employer]; WILL CTM
[2021-01-30] MEDS ORDERED: folic acid 1mg/0.2ml inj IV SCH (08:00)
[2021-01-30] MEDS: K and/or MAG REPLACEMENT MC SCH ×2 (08:00→20:00)
[2021-01-30] MEDS ORDERED: folic acid inj. 2 MG, thiamine inj. 100 MG, MVI, adult No.4 with vit. K 10 ML in dextro... IV SCH ×4 (08:00)
[2021-01-30] MEDS: docusate sod 100mg capsule PO SCH ×2 (08:00→20:46)
[2021-01-30] MEDS ORDERED: pantoprazole 40mg Tablet.DR PO SCH (08:00)
[2021-01-30] MEDS: FLUoxetine 20mg capsule PO SCH (08:42)
[2021-01-30] MEDS: hyDRALAzine 10mg tablet PO SCH ×3 (08:43→17:43)
[2021-01-30] MEDS: lisinopril 20mg tablet PO SCH (08:43)
[2021-01-30] MEDS: metoprolol succinate 25mg (24-HOUR) SR. Tablet PO SCH (08:43)
[2021-01-30] MEDS: gabapentin 300mg capsule PO SCH ×2 (08:43→12:15)
[2021-01-30] MEDS: cloNIDine 0.1 mg tablet PO SCH ×2 (08:43→20:45)
[2021-01-30] MEDS: thiamine 100mg tablet PO SCH (09:53)
[2021-01-30] MEDS: LORazepam 2 mg/ml vial IV PRN ×2 (09:53→17:03)
[2021-01-30] MEDS: MESSAGE TO NURSING PO NR (10:07)
--- NOTE | 2021-01-30 13:43 | NUR ---
Pt's sister, Ina, took all of the pt's belongings home.
--- NOTE | 2021-01-30 14:30 | NUR ---
Patient transfer from ER to the unit at 1405. Patient in no distress at this, patient oriented to room call light within reach, bed in low position, personal item within reach of patient. Nurse will continue to monitor patient.
[2021-01-30 15:00] VITALS: BP 130/74
--- NOTE | 2021-01-30 16:05 | NUR ---
Noted pt with T2DM, A1c 7.3% 01/11 per EMR. Pt given written DM education with RD contact information at last visit 01/12. No further education planned at this time. Will continue to follow. Addendum: 01/30/21 at [address] Amended: Links added.
[2021-01-30] MEDS ORDERED: heparin 10,000 units/1 ML INJ IV SCH (16:45)
[2021-01-30] MEDS: heparin 10,000 units/1 ML INJ IV PRN (17:02)
--- NOTE | 2021-01-30 17:12 | NUR ---
At 1439 heparin bag changed rate remain 6.5ml/hr but IV spreed sheet reflect 10ml/hr which was incorrect. heparin verify with Jessenia READ at 1710, rate change to 10.5ml/hr per protocol. 2 RN verification done.
[2021-01-30 18:00] VITALS: BP 149/89
--- NOTE | 2021-01-30 19:00 | NUR ---
Problems reprioritized. Patient report given, questions answered & plan of care reviewed with Gladys READ.
[2021-01-30] MEDS: atorvastatin 20mg tablet PO SCH (20:45)
[2021-01-30] MEDS: nortriptyline 10mg capsule PO SCH (20:47)
[2021-01-30] MEDS: insulin glargine (Lantus) pen - multi-dose SQ SCH (21:00)
[2021-01-30] MEDS: Terazosin 1mg capsule PO SCH (22:45)
[2021-01-30 22:52] VITALS: BP 172/106
[2021-01-31] VITALS (9 sets, daily range): BP systolic 88–179; BP diastolic 55–106
[2021-01-31] MEDS: heparin 10,000 units/1 ML INJ IV PRN ×2 (00:34→08:22)
--- NOTE | 2021-01-31 06:35 | NUR ---
Problems reprioritized. Patient report given, questions answered & plan of care reviewed with RORO Hall.
--- NOTE | 2021-01-31 07:03 | NUR ---
Patient in room U 3025Q. I have received report from RORO SCOTT and had the opportunity to ask questions and assume patient care.
[2021-01-31 07:27] LABS: BASOPHILS % (AUTO) 0.9 % (0-1); EOSINOPHILS # (AUTO) 0.2 X10'3 (0-0.9); EOSINOPHILS % (AUTO) 5.5 % (0-6); HEMATOCRIT 37.4 % (42.0-52.0); HEMOGLOBIN 12.3 g/dl (14.0-17.9); LYMPHOCYTES # (AUTO) 1.4 X10'3 (1.1-4.8); LYMPHOCYTES % (AUTO) 35.4 % (21-51); MEAN CORPUSCULAR HEMOGLOBIN 30.1 PG (27.0-31.0); MEAN CORPUSCULAR HGB CONC 32.9 g/dL (33.0-36.5); MEAN CORPUSCULAR VOLUME 91.4 FL (78-98); MEAN PLATELET VOLUME 9.1 FL (7.4-10.4); MONOCYTES # (AUTO) 0.4 X10'3 (0-0.9); MONOCYTES % (AUTO) 10.3 % (2-12); NEUTROPHILS # (AUTO) 1.8 X10'3 (1.8-7.7); NEUTROPHILS % (AUTO) 47.9 % (42-75); PLATELET COUNT 130 X10'3 (140-440); RED BLOOD COUNT 4.09 X10'6 (4.70-6.10); RED CELL DISTRIBUTION WIDTH 16.6 % (11.5-14.5); WHITE BLOOD COUNT 3.9 X10'3 (4.5-11.0)
[2021-01-31] MEDS: K and/or MAG REPLACEMENT MC SCH ×2 (08:00→20:00)
[2021-01-31 08:08] LABS: ALANINE AMINOTRANSFERASE 19 U/L (12-78); ALBUMIN 3.3 G/DL (3.4-5.0); ALBUMIN/GLOBULIN RATIO 1.1 (1.1-1.5); ALKALINE PHOSPHATASE 95 IU/L (46-116); AMYLASE 52 U/L (25-115); ANION GAP 10 (8-16); ASPARTATE AMINO TRANSFERASE 21 U/L (10-37); BILIRUBIN,TOTAL 0.8 MG/DL (0.1-1.0); BLOOD UREA NITROGEN 14 MG/DL (7-18); BUN/CREATININE RATIO 12.1 (5.4-32.0); CALCIUM 8.5 MG/DL (8.5-10.1); CHLORIDE 104 MMOL/L (99-107); CREATININE 1.16 MG/DL (0.60-1.10); GLUCOSE 141 MG/DL (70-104); LIPASE 78 U/L (73-393); MAGNESIUM 2.2 MG/DL (1.5-2.4); PHOSPHORUS 3.7 MG/DL (2.3-4.5); POTASSIUM 3.7 MMOL/L (3.5-5.1); SODIUM 137 MMOL/L (135-145); TOTAL CARBON DIOXIDE 22.9 MMOL/L (24-32); TOTAL PROTEIN 6.4 G/DL (6.4-8.2); eGFR 64 ML/MIN
[2021-01-31] MEDS: heparin 25,000 UNIT/250ml bag 250 ML IV SCH (08:20)
[2021-01-31] MEDS: folic acid 1mg tablet PO SCH (08:23)
[2021-01-31] MEDS: gabapentin 300mg capsule PO SCH ×2 (08:23→17:44)
[2021-01-31] MEDS: lisinopril 20mg tablet PO SCH (08:24)
[2021-01-31] MEDS: FLUoxetine 20mg capsule PO SCH (08:24)
[2021-01-31] MEDS: metoprolol succinate 25mg (24-HOUR) SR. Tablet PO SCH (08:24)
[2021-01-31] MEDS: hyDRALAzine 10mg tablet PO SCH ×3 (08:25→19:57)
[2021-01-31] MEDS: thiamine 100mg tablet PO SCH (08:25)
[2021-01-31] MEDS: cloNIDine 0.1 mg tablet PO SCH ×2 (08:25→19:43)
[2021-01-31] MEDS: docusate sod 100mg capsule PO SCH ×2 (08:25→19:42)
[2021-01-31] MEDS: LORazepam 2 mg/ml vial IV PRN (08:39)
[2021-01-31] MEDS: MESSAGE TO NURSING PO NR (10:00)
[2021-01-31] MEDS ORDERED: normal saline 500ml IV soln 500 ML IV ONE ×3 (10:10→16:25)
[2021-01-31] MEDS ORDERED: pantoprazole 40mg Tablet.DR PO SCH (16:37)
[2021-01-31] MEDS: nortriptyline 10mg capsule PO SCH (19:42)
[2021-01-31] MEDS: atorvastatin 20mg tablet PO SCH (19:43)
[2021-01-31] MEDS: Terazosin 1mg capsule PO SCH (19:43)
[2021-01-31] MEDS: metFORMIN 500mg tablet PO SCH (19:44)
[2021-01-31] MEDS: insulin glargine (Lantus) pen - multi-dose SQ SCH (20:02)
--- NOTE | 2021-01-31 20:03 | NUR ---
Problems reprioritized. Patient report given, questions answered & plan of care reviewed with RORO LYNNE.
[2021-02-01 02:00] VITALS: BP 182/110
[2021-02-01] MEDS ORDERED: LORazepam 2 mg/ml vial IV PRN (02:30)
[2021-02-01 03:00] VITALS: BP 195/90
--- NOTE | 2021-02-01 03:16 | NUR ---
new order for IV ativan 1mg Q2Hr PRN
[2021-02-01 03:45] VITALS: BP 190/96
[2021-02-01] MEDS ORDERED: amLODIPine 2.5mg tablet PO STA (03:52)
--- NOTE | 2021-02-01 04:00 | NUR ---
1x dose of Norvasc 2.5mg PO given for BP 190/96 HR is 56
[2021-02-01 06:00] VITALS: BP 166/75
[2021-02-01 06:28] LABS: EOSINOPHILS # (AUTO) 0.2 X10'3 (0-0.9); HEMOGLOBIN 11.4 g/dl (14.0-17.9); WHITE BLOOD COUNT 4.4 X10'3 (4.5-11.0)
[2021-02-01 06:31] LABS: BASOPHILS % (AUTO) 0.7 % (0-1); EOSINOPHILS % (AUTO) 4.6 % (0-6); HEMATOCRIT 33.5 % (42.0-52.0); LYMPHOCYTES # (AUTO) 1.5 X10'3 (1.1-4.8); LYMPHOCYTES % (AUTO) 33.5 % (21-51); MEAN CORPUSCULAR HEMOGLOBIN 30.4 PG (27.0-31.0); MEAN CORPUSCULAR HGB CONC 33.9 g/dL (33.0-36.5); MEAN CORPUSCULAR VOLUME 89.7 FL (78-98); MEAN PLATELET VOLUME 9.1 FL (7.4-10.4); MONOCYTES # (AUTO) 0.4 X10'3 (0-0.9); MONOCYTES % (AUTO) 10.2 % (2-12); NEUTROPHILS # (AUTO) 2.2 X10'3 (1.8-7.7); PLATELET COUNT 120 X10'3 (140-440); RED BLOOD COUNT 3.73 X10'6 (4.70-6.10); RED CELL DISTRIBUTION WIDTH 16.3 % (11.5-14.5)
--- NOTE | 2021-02-01 06:34 | NUR ---
Problems reprioritized. Patient report given, questions answered & plan of care reviewed with LETTY READ.
[2021-02-01 06:48] LABS: ALANINE AMINOTRANSFERASE 21 U/L (12-78); ALBUMIN/GLOBULIN RATIO 1.1 (1.1-1.5); ALKALINE PHOSPHATASE 82 IU/L (46-116); AMYLASE 48 U/L (25-115); ANION GAP 12 (8-16); ASPARTATE AMINO TRANSFERASE 19 U/L (10-37); BILIRUBIN,TOTAL 0.6 MG/DL (0.1-1.0); BLOOD UREA NITROGEN 10 MG/DL (7-18); BUN/CREATININE RATIO 9.1 (5.4-32.0); CALCIUM 8.4 MG/DL (8.5-10.1); CHLORIDE 107 MMOL/L (99-107); GLUCOSE 126 MG/DL (70-104); LIPASE 63 U/L (73-393); MAGNESIUM 1.9 MG/DL (1.5-2.4); PHOSPHORUS 4.1 MG/DL (2.3-4.5); POTASSIUM 3.5 MMOL/L (3.5-5.1); SODIUM 142 MMOL/L (135-145); TOTAL CARBON DIOXIDE 23.2 MMOL/L (24-32); TOTAL PROTEIN 5.8 G/DL (6.4-8.2); eGFR 68 ML/MIN
[2021-02-01] MEDS: folic acid 1mg tablet PO SCH (07:49)
[2021-02-01] MEDS: hyDRALAzine 10mg tablet PO SCH (07:49)
[2021-02-01] MEDS: cloNIDine 0.1 mg tablet PO SCH (07:49)
[2021-02-01] MEDS: metFORMIN 500mg tablet PO SCH (07:49)
[2021-02-01] MEDS: docusate sod 100mg capsule PO SCH (07:49)
[2021-02-01] MEDS: gabapentin 300mg capsule PO SCH (07:49)
[2021-02-01 07:50] VITALS: BP_SYST 166
[2021-02-01] MEDS: thiamine 100mg tablet PO SCH (07:50)
[2021-02-01] MEDS: FLUoxetine 20mg capsule PO SCH (07:50)
[2021-02-01] MEDS: lisinopril 20mg tablet PO SCH (07:50)
[2021-02-01] MEDS: metoprolol succinate 25mg (24-HOUR) SR. Tablet PO SCH (07:51)
[2021-02-01] MEDS ORDERED: aspirin 81mg, enteric-coated 1 TAB TABLET.DR PO SCH (08:00)
[2021-02-01] MEDS ORDERED: ASPI-1071 PO (10:58)
[2021-02-01] MEDS ORDERED: thiamine tablet PO (10:58)
[2021-02-01] MEDS ORDERED: folic acid tablet PO (10:58)
[2021-02-01] MEDS ORDERED: GLIP10TA11 PO (11:03)
--- NOTE | 2021-02-01 11:42 | NUR ---
called in rx's to [facility] in [place].
== END 2021-02-01 12:00 | disposition home or self-care (01) | DRG 281 ==
LOC: ER 11:20 → ED HOLD 15:39 → PCU 3S 01-30 14:05
PROVIDERS: ADMIT Internal Medicine; ATTEND Internal Medicine
PROC: B32T1ZZ Computerized Tomography (CT Scan) of Left Pulmonary Artery using Low Osmolar Contrast (ICD-10-PCS; 2021-01-29)
PROC: B3201ZZ Computerized Tomography (CT Scan) of Thoracic Aorta using Low Osmolar Contrast (ICD-10-PCS; 2021-01-29)
PROC: B32S1ZZ Computerized Tomography (CT Scan) of Right Pulmonary Artery using Low Osmolar Contrast (ICD-10-PCS; 2021-01-29)
PROC: 4B02XTZ Measurement of Cardiac Defibrillator, External Approach (ICD-10-PCS; principal; 2021-01-31)
DX: I21.4 Non-ST elevation (NSTEMI) myocardial infarction (principal); F10.239 Alcohol dependence with withdrawal, unspecified; I42.9 Cardiomyopathy, unspecified; E11.9 Type 2 diabetes mellitus without complications; Z20.822 Contact with and (suspected) exposure to COVID-19; E78.00 Pure hypercholesterolemia, unspecified; E78.5 Hyperlipidemia, unspecified; F41.9 Anxiety disorder, unspecified; I49.5 Sick sinus syndrome; R00.0 Tachycardia, unspecified; E86.0 Dehydration; G47.33 Obstructive sleep apnea (adult) (pediatric); I10 Essential (primary) hypertension; I95.1 Orthostatic hypotension; Z88.0 Allergy status to penicillin; Z95.810 Presence of automatic (implantable) cardiac defibrillator; Z98.84 Bariatric surgery status; Z79.899 Other long term (current) drug therapy; Z82.49 Family history of ischemic heart disease and other diseases of the circulatory system; Z80.42 Family history of malignant neoplasm of prostate; Z71.41 Alcohol abuse counseling and surveillance of alcoholic
CPT/HCPCS: 36415; 70450; 71045; 71275; 80053; 80061; 80305; 80320; 81001; 82140; 82150; 82948; 83690; 83735; 83880; 84100; 84484; 85025; 85379; 85610; 85730; 87635; 93005; 93306; 96361; 96374; 99285; C9803; G0378; J1644; J1815; J2060; J3411; J3475; J3490; J7030; J7040; Q9967

== ENCOUNTER 2021-05-24 23:37 | Inpatient (IN) | payer OTHER, MEDICARE ==
[~2021-05-24] VITALS: Ht 188 cm; Wt 118.0 kg
[~2021-05-24 23:37] MED LIST changes: +ASPI-1071 PO; +GABA300C PO; +folic acid tablet PO; +thiamine tablet PO
[2021-05-25] MEDS ORDERED: normal saline 1000ml 1,000 ML IV ONE (00:40)
[2021-05-25] MEDS ORDERED: LIDOcaine 1% W/epiNEPHrine 1:100,000 20ml vial IJ ONE (00:45)
[2021-05-25 01:15] LABS: BASOPHILS % (AUTO) 0.5 % (0-1); EOSINOPHILS # (AUTO) 0.1 X10'3 (0-0.9); EOSINOPHILS % (AUTO) 1.1 % (0-6); HEMATOCRIT 35.3 % (42.0-52.0); LYMPHOCYTES # (AUTO) 1.1 X10'3 (1.1-4.8); LYMPHOCYTES % (AUTO) 13.5 % (21-51); MEAN CORPUSCULAR HEMOGLOBIN 29.6 PG (27.0-31.0); MEAN CORPUSCULAR HGB CONC 34.1 g/dL (33.0-36.5); MEAN CORPUSCULAR VOLUME 86.9 FL (78-98); MEAN PLATELET VOLUME 9.3 FL (7.4-10.4); MONOCYTES # (AUTO) 0.5 X10'3 (0-0.9); MONOCYTES % (AUTO) 6.6 % (2-12); NEUTROPHILS # (AUTO) 6.3 X10'3 (1.8-7.7); NEUTROPHILS % (AUTO) 78.3 % (42-75); PLATELET COUNT 224 X10'3 (140-440); RED BLOOD COUNT 4.06 X10'6 (4.70-6.10); RED CELL DISTRIBUTION WIDTH 15.1 % (11.5-14.5); WHITE BLOOD COUNT 8.1 X10'3 (4.5-11.0)
[2021-05-25] MEDS ORDERED: TETanus/Pertussis (Acell)/Diphther VAC/PF (Tdap-Adult) 0.5ml syringe IMVAC ONE (01:15)
[2021-05-25 01:25] LABS: ALBUMIN 3.3 G/DL (3.4-5.0); ANION GAP 16 (8-16); BLOOD UREA NITROGEN 9 MG/DL (7-18); BUN/CREATININE RATIO 8.1 (5.4-32.0); CHLORIDE 101 MMOL/L (99-107); CREATININE 1.11 MG/DL (0.60-1.10); ETHANOL 0.221 GM/DL (0.0-0.010); GLUCOSE 234 MG/DL (70-104); POTASSIUM 4.4 MMOL/L (3.5-5.1); SODIUM 136 MMOL/L (135-145); TOTAL CARBON DIOXIDE 19.4 MMOL/L (24-32); eGFR 67 ML/MIN
[2021-05-25] MEDS ORDERED: metoprolol tartrate 1mg/ml inj IV ONE (02:10)
[2021-05-25] MEDS ORDERED: diltiazem 5mg/ml 5ml inj. IV ONE (03:10)
--- NOTE | 2021-05-25 03:38 | NUR ---
Pt given 10 of diltiazem. No reduction in HR. Pt to be admitted for further treatment.
[2021-05-25] MEDS ORDERED: aspirin 325mg tablet PO ONE (03:45)
[2021-05-25] MEDS ORDERED: magnesium Cl slow-release 64mg tablet PO PRN (04:10)
[2021-05-25] MEDS ORDERED: acetaminophen 325mg tablet PO PRN ×2 (04:10)
[2021-05-25] MEDS ORDERED: magnesium 2GM in 50ml NS 50 ML IV PRN (04:10)
[2021-05-25] MEDS ORDERED: PERFLUTREN PROTEIN-A MICROSPHR (Optison) 0.22 MG/ML 3ML VIAL IV PRN (04:10)
[2021-05-25] MEDS ORDERED: HYDROcodone/acetaminophen 5mg/325mg tablet PO PRN (04:10)
[2021-05-25] MEDS ORDERED: potassium Cl 20 mEq SR tablet PO PRN ×2 (04:10)
[2021-05-25] MEDS ORDERED: magnesium 4gm in 100ml NS 100 ML IV PRN (04:10)
[2021-05-25] MEDS ORDERED: morphine 2 MG/ML inj. syringe IV PRN (04:10)
[2021-05-25] MEDS ORDERED: diltiazem-NS 100mg/100ml 100 ML IV SCH (04:10)
[2021-05-25] MEDS ORDERED: potassium CL 10mEq/100ml bag 100 ML IV PRN (04:10)
[2021-05-25] MEDS ORDERED: ondansetron/PF 4mg/2ml inj IV PRN (04:10)
[2021-05-25] MEDS ORDERED: LORazepam 1 MG tablet PO PRN (04:10)
[2021-05-25] MEDS ORDERED: dextrose 50%-water 50ml dispensing syringe IV PRN ×2 (04:40)
[2021-05-25] MEDS ORDERED: insulin Lispro (HumaLOG) vial - multi-dose SQ SCH (04:40)
[2021-05-25] MEDS ORDERED: dextrose ORAL solution 15 GM/59 ML bottle PO PRN ×2 (04:40)
[2021-05-25] MEDS ORDERED: glucagon, human recombinant 1mg kit SUBCUT PRN (04:40)
[2021-05-25] MEDS ORDERED: MESSAGE TO PHARMACY PO ONE (04:40)
[2021-05-25] MEDS ORDERED: CLON0.1T2 PO (04:47)
[2021-05-25] MEDS ORDERED: GLIP10TA11 PO (04:47)
[2021-05-25] MEDS ORDERED: nortriptyline 10mg capsule PO PRN (04:50)
[2021-05-25] MEDS: normal saline 1000ml 1,000 ML IV SCH ×2 (05:14→17:43)
[2021-05-25] MEDS: multivitamins, therapeutics tablet PO SCH (07:40)
[2021-05-25] MEDS: FLUoxetine 20mg capsule PO SCH (07:40)
[2021-05-25] MEDS: hyDRALAzine 10mg tablet PO SCH ×3 (07:40→17:43)
[2021-05-25] MEDS: lisinopril 20mg tablet PO SCH (07:40)
[2021-05-25] MEDS: pantoprazole 40mg Tablet.DR PO SCH (07:41)
[2021-05-25] MEDS: atenolol 50mg tablet PO SCH (07:41)
[2021-05-25] MEDS: heparin, porcine 5000 units/ml vial SQ SCH ×2 (07:41→20:48)
[2021-05-25] MEDS: thiamine 100mg/ml 2ml inj. IV SCH ×3 (07:41→20:47)
[2021-05-25] MEDS ORDERED: folic acid 1mg/0.2ml inj IV SCH (08:00)
[2021-05-25] MEDS: K and/or MAG REPLACEMENT MC SCH ×2 (08:00→20:00)
[2021-05-25] MEDS ORDERED: iohexol 350MG/ML 100ml bottle IV ONE ×2 (09:01→10:39)
[2021-05-25] MEDS: LORazepam 2 mg/ml vial IV PRN ×4 (09:21→20:47)
[2021-05-25] MEDS: diltiazem SR 60mg capsule (twice daily) PO SCH ×2 (12:42→20:42)
--- NOTE | 2021-05-25 12:53 | NUR ---
ISELA OLSON DC'D PER DR. MCMAHON
[2021-05-25 13:25] LABS: URINE AMPHETAMINE SCREEN NEGATIVE (Neg); URINE BARBITUATE SCREEN NEGATIVE (Neg); URINE BENZODIAZEPINES SCREEN POSITIVE (Neg); URINE CANNABINOID SCREEN NEGATIVE (Neg); URINE COCAINE SCREEN NEGATIVE (Neg); URINE METHADONE SCREEN NEGATIVE (Neg); URINE OPIATE SCREEN NEGATIVE (Neg); URINE PHENCYCLIDINE SCREEN NEGATIVE (Neg)
[2021-05-25 13:34] LABS: CLARITY,URINE CLEAR (Clear); COLOR,URINE YELLOW (Yellow); GLUCOSE, URINE 100 mg/dl (Neg); KETONES,URINE 15 mg/dl (Neg); LEUKOCYTE ESTERASE ,URINE NEGATIVE (Neg); NITRITES, URINE NEGATIVE (Neg); OCCULT BLOOD,URINE NEGATIVE (Neg); PROTEIN,URINE NEGATIVE (Neg)
[2021-05-25 13:36] LABS: UA COLLECTION TYPE URINAL
--- NOTE | 2021-05-25 14:00 | NUR ---
sister Thais [phone]
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
[2021-05-25 15:00] VITALS: BP 147/104
[2021-05-25] MEDS ORDERED: COVID-19 VACC, MRNA(PFIZER)/PF--BNT162b2 syringe IMVAC ONE (17:20)
--- NOTE | 2021-05-25 17:50 | NUR ---
Client has significant tremors. He is unable to hold cup of water steadily. He wants to get up and walk around. He states"I feel like I am in care home" He has been provided IV Ativan dose
[2021-05-25 18:00] VITALS: BP 123/98
--- NOTE | 2021-05-25 18:00 | NUR ---
Sister Marcie [phone]
--- NOTE | 2021-05-25 18:17 | NUR ---
Patient in room PCU 3013. I have received report from RORO Plascencia, and had the opportunity to ask questions and assume patient care.BS 134, per RN Report.
--- NOTE | 2021-05-25 18:24 | NUR ---
Problems reprioritized. Patient report given, questions answered & plan of care reviewed with KENDELL.
[2021-05-25] MEDS ORDERED: diltiazem SR 60mg capsule (twice daily) PO SCH (20:00)
[2021-05-25] MEDS ORDERED: insulin glargine (Lantus) pen - multi-dose SQ SCH (21:00)
[2021-05-25] MEDS ORDERED: temazepam 15mg capsule PO PRN (21:00)
[2021-05-25] MEDS ORDERED: atorvastatin 20mg tablet PO SCH (21:00)
[2021-05-25 22:00] VITALS: BP 141/75
[2021-05-26 02:00] VITALS: BP 144/75
[2021-05-26] MEDS: normal saline 1000ml 1,000 ML IV SCH (03:35)
[2021-05-26] MEDS: LORazepam 2 mg/ml vial IV PRN ×2 (03:35→05:32)
[2021-05-26 07:37] LABS: BASOPHILS % (AUTO) 0.6 % (0-1); EOSINOPHILS # (AUTO) 0.1 X10'3 (0-0.9); EOSINOPHILS % (AUTO) 1.9 % (0-6); HEMATOCRIT 34.9 % (42.0-52.0); HEMOGLOBIN 11.8 g/dl (14.0-17.9); LYMPHOCYTES # (AUTO) 1.3 X10'3 (1.1-4.8); LYMPHOCYTES % (AUTO) 19.5 % (21-51); MEAN CORPUSCULAR HEMOGLOBIN 29.5 PG (27.0-31.0); MEAN CORPUSCULAR HGB CONC 33.8 g/dL (33.0-36.5); MEAN CORPUSCULAR VOLUME 87.4 FL (78-98); MEAN PLATELET VOLUME 9.8 FL (7.4-10.4); MONOCYTES # (AUTO) 0.7 X10'3 (0-0.9); MONOCYTES % (AUTO) 10.1 % (2-12); NEUTROPHILS # (AUTO) 4.5 X10'3 (1.8-7.7); NEUTROPHILS % (AUTO) 67.9 % (42-75); PLATELET COUNT 169 X10'3 (140-440); RED BLOOD COUNT 3.99 X10'6 (4.70-6.10); RED CELL DISTRIBUTION WIDTH 15.4 % (11.5-14.5); WHITE BLOOD COUNT 6.6 X10'3 (4.5-11.0)
[2021-05-26 07:52] LABS: ALANINE AMINOTRANSFERASE 20 U/L (12-78); ALKALINE PHOSPHATASE 93 IU/L (46-116); ANION GAP 10 (8-16); ASPARTATE AMINO TRANSFERASE 21 U/L (10-37); BILIRUBIN,TOTAL 1.3 MG/DL (0.1-1.0); BLOOD UREA NITROGEN 9 MG/DL (7-18); CALCIUM 7.9 MG/DL (8.5-10.1); CHLORIDE 103 MMOL/L (99-107); GLUCOSE 157 MG/DL (70-104); PHOSPHORUS 3.6 MG/DL (2.3-4.5); POTASSIUM 3.5 MMOL/L (3.5-5.1); SODIUM 138 MMOL/L (135-145); TOTAL CARBON DIOXIDE 24.7 MMOL/L (24-32); eGFR 86 ML/MIN
[2021-05-26] MEDS: multivitamins, therapeutics tablet PO SCH (07:56)
[2021-05-26] MEDS: diltiazem SR 60mg capsule (twice daily) PO SCH (07:59)
[2021-05-26] MEDS: lisinopril 20mg tablet PO SCH (08:01)
[2021-05-26] MEDS: hyDRALAzine 10mg tablet PO SCH ×2 (08:01→13:00)
[2021-05-26] MEDS: atenolol 50mg tablet PO SCH (08:02)
[2021-05-26] MEDS: FLUoxetine 20mg capsule PO SCH (08:02)
[2021-05-26] MEDS: pantoprazole 40mg Tablet.DR PO SCH (08:02)
[2021-05-26] MEDS: thiamine 100mg/ml 2ml inj. IV SCH ×2 (08:03→13:00)
[2021-05-26] MEDS: heparin, porcine 5000 units/ml vial SQ SCH (08:08)
[2021-05-26] MEDS: K and/or MAG REPLACEMENT MC SCH (08:10)
--- NOTE | 2021-05-26 10:57 | NUR ---
Noted pt with T2DM, current A1c 8.0% up from 7.3% 01/11/21 per EMR. Pt currently documented as A/O x 2 and confused, easily agitated. Pt would benefit from DM education once more appropriate. Noted pt currently receiving routine Thiamine, Folic acid, and MVI for EtOH hx. Will continue to follow. Addendum: 05/26/21 at [address] Amended: Links added.
[2021-05-26 11:58] VITALS: BP 150/77
[2021-05-26 13:00] VITALS: BP_SYST 142
[2021-05-26] MEDS ORDERED: FOLI0.4T6 PO (13:35)
[2021-05-26] MEDS ORDERED: THIA50TA10 PO (13:35)
[2021-05-26] MEDS ORDERED: LORA-269 PO (13:35)
[2021-05-26] MEDS ORDERED: MULT-1085 PO (13:35)
== END 2021-05-26 16:59 | disposition home or self-care (01) | DRG 308 ==
LOC: ER 23:38 → ED HOLD 05-25 04:20 → PCU 3S 05-25 16:14
PROVIDERS: ADMIT Internal Medicine; ATTEND Family Medicine
PROC: 3E0234Z Introduction of Serum, Toxoid and Vaccine into Muscle, Percutaneous Approach (ICD-10-PCS; principal; 2021-05-25)
PROC: B32T1ZZ Computerized Tomography (CT Scan) of Left Pulmonary Artery using Low Osmolar Contrast (ICD-10-PCS; 2021-05-25)
PROC: B3201ZZ Computerized Tomography (CT Scan) of Thoracic Aorta using Low Osmolar Contrast (ICD-10-PCS; 2021-05-25)
PROC: B32S1ZZ Computerized Tomography (CT Scan) of Right Pulmonary Artery using Low Osmolar Contrast (ICD-10-PCS; 2021-05-25)
PROC: 0HQ0XZZ Repair Scalp Skin, External Approach (ICD-10-PCS; 2021-05-25)
DX: I48.91 Unspecified atrial fibrillation (principal); U07.1 COVID-19; I24.8 Other forms of acute ischemic heart disease; S01.81XA Laceration without foreign body of other part of head, initial encounter; E11.22 Type 2 diabetes mellitus with diabetic chronic kidney disease; F10.10 Alcohol abuse, uncomplicated; F41.9 Anxiety disorder, unspecified; G47.30 Sleep apnea, unspecified; S09.8XXA Other specified injuries of head, initial encounter; I12.9 Hypertensive chronic kidney disease with stage 1 through stage 4 chronic kidney disease, or unspecified chronic kidney disease; W01.10XA Fall on same level from slipping, tripping and stumbling with subsequent striking against unspecified object, initial encounter; N18.30 Chronic kidney disease, stage 3 unspecified; S09.90XA Unspecified injury of head, initial encounter; Z95.0 Presence of cardiac pacemaker; Z98.84 Bariatric surgery status; Z23 Encounter for immunization; Z88.0 Allergy status to penicillin; Z81.8 Family history of other mental and behavioral disorders; Z82.49 Family history of ischemic heart disease and other diseases of the circulatory system; Z80.42 Family history of malignant neoplasm of prostate; Y93.89 Activity, other specified; Y92.89 Other specified places as the place of occurrence of the external cause; Y99.8 Other external cause status
CPT/HCPCS: 0004A; 12001; 36415; 70450; 71045; 71275; 72125; 80048; 80053; 80305; 80320; 81003; 82948; 83036; 83735; 84100; 84484; 85025; 87081; 90471; 90715; 91300; 93005; 93306; 96361; 96374; 96375; 97116; 97161; 97530; 99285; G0378; J1644; J1815; J2060; J3411; J3490; J7030; Q9967

== ENCOUNTER 2021-06-01 07:59 | Inpatient (IN) | payer MEDICARE, OTHER ==
[~2021-06-01] VITALS: Ht 188 cm; Wt 120.8 kg
[~2021-06-01 07:59] MED LIST changes: -ASPI-1071 PO; +CLON0.1T2 PO; -CLON0.3T36 PO; +FOLI0.4T6 PO; -GABA300C PO; +LORA-269 PO; +MULT-1085 PO; -OMEP-50 PO; +OMEP20CA16 PO; -TERA2CAP4 PO; +THIA50TA10 PO; -folic acid tablet PO; -thiamine tablet PO
[2021-06-01] MEDS ORDERED: LORazepam 2 mg/ml vial IV ONE ×2 (08:20→10:35)
[2021-06-01] MEDS ORDERED: normal saline 1000ml 1,000 ML IV ONE ×2 (08:20→10:25)
[2021-06-01] MEDS ORDERED: ondansetron/PF 4mg/2ml inj IV ONE (08:35)
[2021-06-01] MEDS ORDERED: levetiracetam inj 1,000 MG in normal saline 100ml IV soln 90 ML IV ONE (08:40)
[2021-06-01] MEDS ORDERED: proCHLORperazine 10 MG/2 ml inj IV ONE (08:40)
[2021-06-01] MEDS ORDERED: aspirin 325mg tablet PO ONE (08:45)
[2021-06-01] MEDS ORDERED: diltiazem 5mg/ml 5ml inj. IV ONE (08:45)
[2021-06-01] MEDS ORDERED: diltiazem-D5W 125mg/125ml 125 ML IV SCH (08:50)
[2021-06-01 08:53] LABS: BASOPHILS % (AUTO) 0.3 % (0-1); EOSINOPHILS % (AUTO) 0.1 % (0-6); HEMATOCRIT 37.7 % (42.0-52.0); HEMOGLOBIN 12.4 g/dl (14.0-17.9); LYMPHOCYTES # (AUTO) 0.6 X10'3 (1.1-4.8); LYMPHOCYTES % (AUTO) 6.8 % (21-51); MEAN CORPUSCULAR HEMOGLOBIN 29.6 PG (27.0-31.0); MEAN CORPUSCULAR HGB CONC 32.9 g/dL (33.0-36.5); MEAN CORPUSCULAR VOLUME 90.1 FL (78-98); MEAN PLATELET VOLUME 9.4 FL (7.4-10.4); MONOCYTES # (AUTO) 0.8 X10'3 (0-0.9); MONOCYTES % (AUTO) 8.8 % (2-12); NEUTROPHILS # (AUTO) 7.7 X10'3 (1.8-7.7); PLATELET COUNT 154 X10'3 (140-440); RED BLOOD COUNT 4.19 X10'6 (4.70-6.10); RED CELL DISTRIBUTION WIDTH 16.5 % (11.5-14.5); WHITE BLOOD COUNT 9.2 X10'3 (4.5-11.0)
[2021-06-01] MEDS ORDERED: levetiracetam-NS 1000mg/100ml 100 ML IV ONE (08:53)
[2021-06-01] MEDS ORDERED: diltiazem-NS 100mg/100ml 125 ML IV SCH (08:56)
[2021-06-01 09:19] LABS: POTASSIUM 4.4 MMOL/L (3.5-5.1); SODIUM 135 MMOL/L (135-145)
[2021-06-01 09:27] LABS: ALANINE AMINOTRANSFERASE 34 U/L (12-78); ALBUMIN 3.4 G/DL (3.4-5.0); ALKALINE PHOSPHATASE 94 IU/L (46-116); ANION GAP 18 (8-16); ASPARTATE AMINO TRANSFERASE 37 U/L (10-37); BLOOD UREA NITROGEN 16 MG/DL (7-18); BUN/CREATININE RATIO 13.4 (5.4-32.0); CALCIUM 8.2 MG/DL (8.5-10.1); CHLORIDE 97 MMOL/L (99-107); CREATININE 1.19 MG/DL (0.60-1.10); GLUCOSE 232 MG/DL (70-104); MAGNESIUM 1.8 MG/DL (1.5-2.4); TOTAL CARBON DIOXIDE 19.6 MMOL/L (24-32); TOTAL PROTEIN 6.7 G/DL (6.4-8.2); eGFR 62 ML/MIN
[2021-06-01] MEDS ORDERED: LORazepam 2 mg/ml vial IV PRN (10:55)
[2021-06-01] MEDS ORDERED: haloperidol 5mg tablet PO PRN (10:55)
[2021-06-01] MEDS ORDERED: magnesium 2GM in 50ml NS 50 ML IV PRN (10:55)
[2021-06-01] MEDS ORDERED: ondansetron/PF 4mg/2ml inj IV PRN (10:55)
[2021-06-01] MEDS ORDERED: magnesium Cl slow-release 64mg tablet PO PRN (10:55)
[2021-06-01] MEDS: diltiazem-NS 100mg/100ml 100 ML IV SCH (10:55)
[2021-06-01] MEDS ORDERED: magnesium 4gm in 100ml NS 100 ML IV PRN (10:55)
[2021-06-01] MEDS ORDERED: potassium Cl 20 mEq SR tablet PO PRN ×2 (10:55)
[2021-06-01] MEDS ORDERED: acetaminophen 325mg tablet PO PRN (10:55)
[2021-06-01] MEDS ORDERED: haloperidol lactate 5mg/ml inj IM PRN (10:55)
[2021-06-01] MEDS ORDERED: dextrose 50%-water 50ml dispensing syringe IV PRN ×3 (10:55→14:30)
[2021-06-01] MEDS ORDERED: potassium CL 10mEq/100ml bag 100 ML IV PRN (10:55)
[2021-06-01] MEDS ORDERED: mag hydrox/Alum hydrox/simeth 30ml oral suspension PO PRN (10:55)
--- NOTE | 2021-06-01 12:38 | NUR ---
Dr. Saeed notified of pt's BP.
[2021-06-01] MEDS ORDERED: hyDRALAzine 10mg tablet PO PRN (12:45)
[2021-06-01] MEDS: thiamine 100mg/ml 2ml inj. IV SCH ×2 (13:00→20:21)
[2021-06-01] MEDS ORDERED: MESSAGE TO PHARMACY PO ONE (14:30)
[2021-06-01] MEDS ORDERED: glucagon, human recombinant 1mg kit SUBCUT PRN (14:30)
[2021-06-01] MEDS ORDERED: dextrose ORAL solution 15 GM/59 ML bottle PO PRN ×2 (14:30)
[2021-06-01] MEDS ORDERED: GABA300C PO ×2 (15:02→15:05)
[2021-06-01] MEDS ORDERED: TERA2CAP4 PO (15:02)
--- NOTE | 2021-06-01 15:28 | NUR ---
Dr. Saeed notified of pt's troponin.
--- NOTE | 2021-06-01 15:38 | NUR ---
Called report to [employer] OPERATOR.
[2021-06-01] MEDS ORDERED: nortriptyline 10mg capsule PO PRN (16:35)
[2021-06-01 16:40] VITALS: BP 169/95
[2021-06-01] MEDS: normal saline 1000ml 1,000 ML IV SCH ×2 (17:16→21:44)
[2021-06-01 18:00] VITALS: BP 162/86
--- NOTE | 2021-06-01 18:15 | NUR ---
Problems reprioritized. Patient report given, questions answered & plan of care reviewed with Jordyn READ.
[2021-06-01] MEDS: K and/or MAG REPLACEMENT MC SCH (20:00)
[2021-06-01 20:18] VITALS: BP 167/101
[2021-06-01] MEDS: cloNIDine 0.1 mg tablet PO SCH (20:21)
[2021-06-01] MEDS: Terazosin 1mg capsule PO SCH (20:21)
[2021-06-01] MEDS: heparin, porcine 5000 units/ml vial SQ SCH (20:21)
[2021-06-01] MEDS: atorvastatin 20mg tablet PO SCH (20:22)
[2021-06-01] MEDS: gabapentin 300mg capsule PO SCH (20:22)
[2021-06-01] MEDS: insulin glargine (Lantus) pen - multi-dose SQ SCH (21:51)
[2021-06-01 22:00] VITALS: BP 171/83
[2021-06-02] VITALS (7 sets, daily range): BP systolic 108–172; BP diastolic 59–90
--- NOTE | 2021-06-02 03:30 | NUR ---
MESSAGE SENT TO PHARMACY FOR MISSING CARDIZEM.
[2021-06-02] MEDS: diltiazem-NS 100mg/100ml 100 ML IV SCH ×2 (04:25→16:02)
--- NOTE | 2021-06-02 06:00 | NUR ---
Patient in room PCU 3024. I have received report from RORO Cobb and had the opportunity to ask questions and assume patient care.
[2021-06-02] MEDS: normal saline 1000ml 1,000 ML IV SCH ×2 (06:55→16:55)
[2021-06-02 06:58] LABS: BASOPHILS % (AUTO) 0.6 % (0-1); EOSINOPHILS # (AUTO) 0.2 X10'3 (0-0.9); EOSINOPHILS % (AUTO) 4.6 % (0-6); HEMATOCRIT 32.4 % (42.0-52.0); HEMOGLOBIN 11.1 g/dl (14.0-17.9); LYMPHOCYTES % (AUTO) 26.6 % (21-51); MEAN CORPUSCULAR HEMOGLOBIN 30.3 PG (27.0-31.0); MEAN CORPUSCULAR HGB CONC 34.2 g/dL (33.0-36.5); MEAN CORPUSCULAR VOLUME 88.8 FL (78-98); MEAN PLATELET VOLUME 8.8 FL (7.4-10.4); MONOCYTES # (AUTO) 0.4 X10'3 (0-0.9); MONOCYTES % (AUTO) 11.7 % (2-12); NEUTROPHILS # (AUTO) 2.1 X10'3 (1.8-7.7); NEUTROPHILS % (AUTO) 56.5 % (42-75); PLATELET COUNT 115 X10'3 (140-440); RED BLOOD COUNT 3.65 X10'6 (4.70-6.10); RED CELL DISTRIBUTION WIDTH 16.5 % (11.5-14.5); WHITE BLOOD COUNT 3.7 X10'3 (4.5-11.0)
[2021-06-02 07:12] LABS: ALANINE AMINOTRANSFERASE 26 U/L (12-78); ALBUMIN 2.7 G/DL (3.4-5.0); ALKALINE PHOSPHATASE 76 IU/L (46-116); ANION GAP 8 (8-16); ASPARTATE AMINO TRANSFERASE 28 U/L (10-37); BILIRUBIN,TOTAL 0.9 MG/DL (0.1-1.0); BLOOD UREA NITROGEN 11 MG/DL (7-18); BUN/CREATININE RATIO 14.5 (5.4-32.0); CALCIUM 7.9 MG/DL (8.5-10.1); CHLORIDE 104 MMOL/L (99-107); CREATININE 0.76 MG/DL (0.60-1.10); GLUCOSE 121 MG/DL (70-104); POTASSIUM 3.6 MMOL/L (3.5-5.1); SODIUM 139 MMOL/L (135-145); TOTAL CARBON DIOXIDE 26.8 MMOL/L (24-32); TOTAL PROTEIN 5.5 G/DL (6.4-8.2); eGFR > 90 ML/MIN
[2021-06-02] MEDS: K and/or MAG REPLACEMENT MC SCH ×2 (08:00→19:16)
[2021-06-02] MEDS: thiamine 100mg/ml 2ml inj. IV SCH ×3 (08:40→19:14)
[2021-06-02] MEDS: FLUoxetine 20mg capsule PO SCH (08:40)
[2021-06-02] MEDS: pantoprazole 40mg Tablet.DR PO SCH (08:40)
[2021-06-02] MEDS: folic acid 1mg/0.2ml inj IV SCH (08:41)
[2021-06-02] MEDS: heparin, porcine 5000 units/ml vial SQ SCH ×2 (08:41→19:16)
[2021-06-02] MEDS: lisinopril 20mg tablet PO SCH (08:42)
[2021-06-02] MEDS: metoprolol succinate 25mg (24-HOUR) SR. Tablet PO SCH (08:42)
--- NOTE | 2021-06-02 13:17 | NUR ---
Page sent PAGER ID: [phone] MESSAGE: [id number] Aleksandar Zuniga. would like to start eating. denies nausea. patient feels well. has DM2. would like to eat. can we put him on carb control diet
--- NOTE | 2021-06-02 15:18 | NUR ---
Noted pt with T2DM, current A1c 7.8% down from 8.0% 05/25 per EMR. Written DM education with RD contact information placed in patient's chart. Will remain available. Addendum: 06/02/21 at [address] Amended: Links added.
[2021-06-02] MEDS: insulin Lispro (HumaLOG) vial - multi-dose SQ SCH (19:12)
[2021-06-02] MEDS: gabapentin 300mg capsule PO SCH (19:14)
[2021-06-02] MEDS: atorvastatin 20mg tablet PO SCH (19:15)
[2021-06-02] MEDS: Terazosin 1mg capsule PO SCH (19:15)
[2021-06-02] MEDS: cloNIDine 0.1 mg tablet PO SCH (19:15)
--- NOTE | 2021-06-02 19:17 | NUR ---
Pt asked for 2100 medication and it was given.
[2021-06-02] MEDS: insulin glargine (Lantus) pen - multi-dose SQ SCH (21:00)
--- NOTE | 2021-06-02 21:42 | NUR ---
LANTUS WAS NOT GIVEN BECAUSE BS WAS 33. NOW BS 59. PT IS EATING RIGHT NOW AND WILL CONTINUE MONITORING.
--- NOTE | 2021-06-02 22:50 | NUR ---
FOR MED REC. PT STATED THAT HE DOES NOT TAKE NO MEDICATION AT HOME.
[2021-06-03 02:00] VITALS: BP 155/69
[2021-06-03] MEDS: normal saline 1000ml 1,000 ML IV SCH (02:55)
--- NOTE | 2021-06-03 06:54 | NUR ---
Patient in room PCU 3024. I have received report from RORO Cobb and had the opportunity to ask questions and assume patient care.
[2021-06-03 07:00] LABS: ALANINE AMINOTRANSFERASE 25 U/L (12-78); ALBUMIN 2.7 G/DL (3.4-5.0); ALKALINE PHOSPHATASE 77 IU/L (46-116); ANION GAP 10 (8-16); ASPARTATE AMINO TRANSFERASE 21 U/L (10-37); BILIRUBIN,TOTAL 0.6 MG/DL (0.1-1.0); BLOOD UREA NITROGEN 13 MG/DL (7-18); BUN/CREATININE RATIO 13.8 (5.4-32.0); CALCIUM 8.2 MG/DL (8.5-10.1); CHLORIDE 104 MMOL/L (99-107); CREATININE 0.94 MG/DL (0.60-1.10); GLUCOSE 208 MG/DL (70-104); POTASSIUM 3.7 MMOL/L (3.5-5.1); SODIUM 139 MMOL/L (135-145); TOTAL CARBON DIOXIDE 25.4 MMOL/L (24-32); TOTAL PROTEIN 5.3 G/DL (6.4-8.2); eGFR 81 ML/MIN
[2021-06-03 07:04] LABS: BASOPHILS % (AUTO) 0.4 % (0-1); EOSINOPHILS # (AUTO) 0.2 X10'3 (0-0.9); EOSINOPHILS % (AUTO) 3.5 % (0-6); HEMATOCRIT 32.4 % (42.0-52.0); HEMOGLOBIN 10.9 g/dl (14.0-17.9); LYMPHOCYTES % (AUTO) 23.7 % (21-51); MEAN CORPUSCULAR HEMOGLOBIN 30.2 PG (27.0-31.0); MEAN CORPUSCULAR HGB CONC 33.8 g/dL (33.0-36.5); MEAN CORPUSCULAR VOLUME 89.4 FL (78-98); MEAN PLATELET VOLUME 9.8 FL (7.4-10.4); MONOCYTES # (AUTO) 0.5 X10'3 (0-0.9); MONOCYTES % (AUTO) 11.9 % (2-12); NEUTROPHILS # (AUTO) 2.6 X10'3 (1.8-7.7); NEUTROPHILS % (AUTO) 60.5 % (42-75); PLATELET COUNT 124 X10'3 (140-440); RED BLOOD COUNT 3.62 X10'6 (4.70-6.10); RED CELL DISTRIBUTION WIDTH 16.4 % (11.5-14.5); WHITE BLOOD COUNT 4.3 X10'3 (4.5-11.0)
[2021-06-03] MEDS: pantoprazole 40mg Tablet.DR PO SCH (07:50)
[2021-06-03] MEDS: FLUoxetine 20mg capsule PO SCH (07:50)
[2021-06-03] MEDS: folic acid 1mg/0.2ml inj IV SCH (07:51)
[2021-06-03] MEDS: lisinopril 20mg tablet PO SCH (07:52)
[2021-06-03] MEDS: heparin, porcine 5000 units/ml vial SQ SCH (07:53)
[2021-06-03] MEDS: metoprolol succinate 25mg (24-HOUR) SR. Tablet PO SCH (07:53)
--- NOTE | 2021-06-03 08:00 | NUR ---
Page Sent promotional table spacer PAGER ID: [phone] MESSAGE: [id number] Aleksandar Zuniga- patient is on cardizem gtt still. HR is 66 and has 100 mg of metoprolol ordered. can we D/C one of them. I will hold the metoprolol until I hear from you. thank you [id number] Layla
[2021-06-03] MEDS: thiamine 100mg/ml 2ml inj. IV SCH ×2 (08:01→13:24)
[2021-06-03] MEDS: K and/or MAG REPLACEMENT MC SCH (08:02)
--- NOTE | 2021-06-03 08:16 | NUR ---
Page Sent promotional table spacer PAGER ID: [phone] MESSAGE: [id number]. Aleksandar Guajardo. patient has a pacemaker. gave metoprolol. HR is 75 now. let me know if you want to keep the cardizem drip. Tele is SR with RBBB and PVCs. Thank you [id number]
[2021-06-03] MEDS ORDERED: LORazepam 2 mg/ml vial IV PRN (10:55)
[2021-06-03] MEDS ORDERED: LORazepam 1 MG tablet PO PRN (10:55)
[2021-06-03 11:00] VITALS: BP 120/60
[2021-06-03] MEDS ORDERED: thiamine tablet PO (11:22)
[2021-06-03] MEDS ORDERED: FOLI1TAB27 PO (11:22)
[2021-06-03] MEDS: insulin Lispro (HumaLOG) vial - multi-dose SQ SCH (14:03)
[2021-06-05] MEDS ORDERED: LORazepam 1 MG tablet PO PRN (10:55)
[2021-06-05] MEDS ORDERED: LORazepam 2 mg/ml vial IV PRN (10:55)
[2021-06-06] MEDS ORDERED: folic acid 1mg tablet PO SCH (08:00)
[2021-06-06] MEDS ORDERED: thiamine 100mg tablet PO SCH (08:00)
== END 2021-06-03 16:53 | disposition home or self-care (01) | DRG 281 ==
LOC: ER 08:00 → ED HOLD 10:58 → PCU 3S 16:01
PROVIDERS: ADMIT Internal Medicine; ATTEND Internal Medicine
DX: I48.91 Unspecified atrial fibrillation (principal); I21.A1 Myocardial infarction type 2; F10.239 Alcohol dependence with withdrawal, unspecified; E11.22 Type 2 diabetes mellitus with diabetic chronic kidney disease; F41.9 Anxiety disorder, unspecified; G47.30 Sleep apnea, unspecified; N40.0 Benign prostatic hyperplasia without lower urinary tract symptoms; E78.5 Hyperlipidemia, unspecified; E11.42 Type 2 diabetes mellitus with diabetic polyneuropathy; I12.9 Hypertensive chronic kidney disease with stage 1 through stage 4 chronic kidney disease, or unspecified chronic kidney disease; N18.30 Chronic kidney disease, stage 3 unspecified; Z95.0 Presence of cardiac pacemaker; Z98.84 Bariatric surgery status; Z80.42 Family history of malignant neoplasm of prostate; Z88.0 Allergy status to penicillin; Z82.49 Family history of ischemic heart disease and other diseases of the circulatory system; Z71.41 Alcohol abuse counseling and surveillance of alcoholic; G62.9 Polyneuropathy, unspecified
CPT/HCPCS: 36415; 71045; 80053; 82948; 83036; 83735; 83880; 84484; 85025; 85610; 93005; 93308; 99285; G0378; J0780; J1644; J1815; J1953; J2060; J3411; J3490; J7030

== ENCOUNTER 2021-07-10 13:15 | Emergency (ER) | payer MEDICARE, OTHER ==
[~2021-07-10] VITALS: Ht 185.4 cm; Wt 113.6 kg
[~2021-07-10 13:15] MED LIST changes: -FOLI0.4T6 PO; +FOLI1TAB27 PO; +GABA300C PO; -HYDR-4069 PO; -LORA-269 PO; -MULT-1085 PO; +TERA2CAP4 PO; -THIA50TA10 PO; +thiamine tablet PO
[2021-07-10 13:18] VITALS: BP 123/79
[2021-07-10 13:57] LABS: BASOPHILS % (AUTO) 0.6 % (0-1); EOSINOPHILS # (AUTO) 0.1 X10'3 (0-0.9); EOSINOPHILS % (AUTO) 1.2 % (0-6); HEMATOCRIT 37.7 % (42.0-52.0); HEMOGLOBIN 12.5 g/dl (14.0-17.9); LYMPHOCYTES # (AUTO) 1.1 X10'3 (1.1-4.8); MEAN CORPUSCULAR HEMOGLOBIN 27.6 PG (27.0-31.0); MEAN CORPUSCULAR VOLUME 83.5 FL (78-98); MEAN PLATELET VOLUME 9.8 FL (7.4-10.4); MONOCYTES # (AUTO) 0.7 X10'3 (0-0.9); MONOCYTES % (AUTO) 11.1 % (2-12); NEUTROPHILS # (AUTO) 4.6 X10'3 (1.8-7.7); NEUTROPHILS % (AUTO) 70.1 % (42-75); PLATELET COUNT 216 X10'3 (140-440); RED BLOOD COUNT 4.52 X10'6 (4.70-6.10); WHITE BLOOD COUNT 6.6 X10'3 (4.5-11.0)
[2021-07-10 14:11] LABS: ALANINE AMINOTRANSFERASE 21 U/L (12-78); ALBUMIN 3.9 G/DL (3.4-5.0); ALKALINE PHOSPHATASE 72 IU/L (46-116); ANION GAP 14 (8-16); ASPARTATE AMINO TRANSFERASE 20 U/L (10-37); BILIRUBIN,TOTAL 1.3 MG/DL (0.1-1.0); BLOOD UREA NITROGEN 13 MG/DL (7-18); BUN/CREATININE RATIO 13.3 (5.4-32.0); CHLORIDE 100 MMOL/L (99-107); CREATININE 0.98 MG/DL (0.60-1.10); GLUCOSE 179 MG/DL (70-104); POTASSIUM 4.5 MMOL/L (3.5-5.1); SODIUM 138 MMOL/L (135-145); TOTAL CARBON DIOXIDE 24.3 MMOL/L (24-32); TOTAL PROTEIN 7.8 G/DL (6.4-8.2); eGFR 78 ML/MIN
[2021-07-10 14:16] LABS: ETHANOL < 0.010 GM/DL (0.0-0.010)
[2021-07-10] MEDS ORDERED: normal saline 1000ML IV soln IVB ONE (14:25)
[2021-07-10] MEDS ORDERED: ketorolac tromethamine 15mg/ml inj. IV ONE (14:25)
[2021-07-10 14:37] LABS: CLARITY,URINE TURBID (Clear); GLUCOSE, URINE 100 mg/dl (Neg); KETONES,URINE >=80 mg/dl (Neg); LEUKOCYTE ESTERASE ,URINE SMALL (Neg); NITRITES, URINE POSITIVE (Neg); OCCULT BLOOD,URINE LARGE (Neg); PROTEIN,URINE 100 mg/dl (Neg)
[2021-07-10 14:42] LABS: COLOR,URINE AMBER (Yellow); UA COLLECTION TYPE NON-SPECIFIED
[2021-07-10 14:48] LABS: MUCUS STRANDS MANY /LPF (Neg); RBC,URINE TNTC /HPF (0-2); SQUAMOUS EPITHELIAL CELL,UR MODERATE /LPF (FEW); WBC,URINE TNTC /HPF (0-4)
[2021-07-10 14:49] LABS: BACTERIA,URINE 2+ /HPF (Neg)
[2021-07-10 14:50] LABS: TRANSITIONAL EPI CELLS,URINE MODERATE /HPF
[2021-07-10] MEDS ORDERED: CIPR-202 PO (15:14)
[2021-07-10] MEDS ORDERED: ciprofloxacin 250mg tablet PO ONE (15:15)
--- NOTE | 2021-07-11 17:40 | NUR ---
PT CALLED, STATES THAT HE RX FROM HIS VISIT YESTERDAY WAS NOT RECEIVED BY [facility] IN [place]. RX FOR CIPRO 500MG, 1 TAB PO BID x7 DAYS #14 WAS CALLED IN FOR PT. PT WAS CALLED AND MSG WAS LEFT PT PT'S BROTHER THAT THE RX WAS CALLED IN, THAT THE PHARMACY CLOSES AT 1800 AND THAT IF HE CAN NOT MAKE IT IN TIME THE RX WILL BE READY TOMORROW
== END 2021-07-10 15:57 | disposition home or self-care (01) ==
LOC: ER 13:15
DX: N39.0 Urinary tract infection, site not specified (principal); R31.9 Hematuria, unspecified; I10 Essential (primary) hypertension; G47.30 Sleep apnea, unspecified; E11.9 Type 2 diabetes mellitus without complications; Z87.442 Personal history of urinary calculi; Z98.84 Bariatric surgery status; Z88.0 Allergy status to penicillin; Z79.899 Other long term (current) drug therapy
CPT/HCPCS: 36415; 74176; 80053; 80320; 81001; 85025; 87088; 96361; 96374; 99284; J1885; J7030

== ENCOUNTER 2021-07-17 18:38 | Emergency (ER) | payer MEDICARE, OTHER ==
[~2021-07-17] VITALS: Ht 182.9 cm; Wt 109.1 kg
[~2021-07-17 18:38] MED LIST changes: +CIPR-202 PO
[2021-07-17] MEDS ORDERED: normal saline 1000ml 1,000 ML IV ONE ×2 (19:05→22:15)
[2021-07-17 19:27] LABS: BASOPHILS % (AUTO) 0.5 % (0-1); EOSINOPHILS # (AUTO) 0.2 X10'3 (0-0.9); HEMATOCRIT 40.3 % (42.0-52.0); HEMOGLOBIN 13.2 g/dl (14.0-17.9); LYMPHOCYTES # (AUTO) 1.3 X10'3 (1.1-4.8); LYMPHOCYTES % (AUTO) 15.7 % (21-51); MEAN CORPUSCULAR HEMOGLOBIN 27.4 PG (27.0-31.0); MEAN CORPUSCULAR HGB CONC 32.7 g/dL (33.0-36.5); MEAN CORPUSCULAR VOLUME 83.7 FL (78-98); MEAN PLATELET VOLUME 8.7 FL (7.4-10.4); MONOCYTES # (AUTO) 0.4 X10'3 (0-0.9); MONOCYTES % (AUTO) 4.6 % (2-12); NEUTROPHILS # (AUTO) 6.3 X10'3 (1.8-7.7); NEUTROPHILS % (AUTO) 76.2 % (42-75); PLATELET COUNT 196 X10'3 (140-440); RED BLOOD COUNT 4.82 X10'6 (4.70-6.10); RED CELL DISTRIBUTION WIDTH 16.7 % (11.5-14.5); WHITE BLOOD COUNT 8.2 X10'3 (4.5-11.0)
[2021-07-17 19:41] LABS: ALANINE AMINOTRANSFERASE 23 U/L (12-78); ALBUMIN 3.4 G/DL (3.4-5.0); ALKALINE PHOSPHATASE 61 IU/L (46-116); ANION GAP 17 (8-16); ASPARTATE AMINO TRANSFERASE 21 U/L (10-37); BILIRUBIN,TOTAL 0.4 MG/DL (0.1-1.0); BLOOD UREA NITROGEN 14 MG/DL (7-18); BUN/CREATININE RATIO 12.8 (5.4-32.0); CALCIUM 7.8 MG/DL (8.5-10.1); CHLORIDE 110 MMOL/L (99-107); CREATININE 1.09 MG/DL (0.60-1.10); GLUCOSE 117 MG/DL (70-104); POTASSIUM 3.8 MMOL/L (3.5-5.1); SODIUM 148 MMOL/L (135-145); TOTAL CARBON DIOXIDE 21.5 MMOL/L (24-32); TOTAL PROTEIN 6.8 G/DL (6.4-8.2); eGFR 69 ML/MIN
--- NOTE | 2021-07-17 21:03 | NUR ---
PATIENT AMBULATED WITHOUT ASSISTANCE AND TOLERATED PO FLUIDS AND SANDWICH, AWAITING DISCHARGE.
--- NOTE | 2021-07-17 22:11 | NUR ---
spoke with jean at [phone] Marcie [phone] message left for a return call
[2021-07-17] MEDS ORDERED: lisinopril 10 MG tablet PO ONE (22:15)
[2021-07-17] MEDS ORDERED: cloNIDine 0.1 mg tablet PO ONE (22:15)
[2021-07-17] MEDS ORDERED: lisinopril 20mg tablet PO ONE (22:20)
--- NOTE | 2021-07-17 23:21 | NUR ---
per PA patient is ok to D/C
[2021-07-17 23:22] VITALS: BP 176/98
== END 2021-07-17 23:41 | disposition home or self-care (01) ==
LOC: ER 18:38
DX: F10.129 Alcohol abuse with intoxication, unspecified (principal); I10 Essential (primary) hypertension; E11.9 Type 2 diabetes mellitus without complications; F41.9 Anxiety disorder, unspecified; Z95.0 Presence of cardiac pacemaker; Z98.890 Other specified postprocedural states; Z72.89 Other problems related to lifestyle; Z60.2 Problems related to living alone; Z88.0 Allergy status to penicillin; Z79.2 Long term (current) use of antibiotics; Z79.899 Other long term (current) drug therapy; Y90.9 Presence of alcohol in blood, level not specified
CPT/HCPCS: 36415; 80053; 85025; 93005; 96360; 96361; 99284; J7030

== ENCOUNTER 2021-07-27 10:19 | Inpatient (IN) | payer MEDICARE, OTHER ==
[~2021-07-27] VITALS: Ht 185.4 cm; Wt 113.0 kg
[2021-07-27 10:47] LABS: BASOPHILS % (AUTO) 0.4 % (0-1); EOSINOPHILS % (AUTO) 0.3 % (0-6); HEMATOCRIT 36.7 % (42.0-52.0); HEMOGLOBIN 11.9 g/dl (14.0-17.9); LYMPHOCYTES # (AUTO) 0.7 X10'3 (1.1-4.8); LYMPHOCYTES % (AUTO) 7.9 % (21-51); MEAN CORPUSCULAR HEMOGLOBIN 27.1 PG (27.0-31.0); MEAN CORPUSCULAR HGB CONC 32.6 g/dL (33.0-36.5); MEAN CORPUSCULAR VOLUME 83.3 FL (78-98); MEAN PLATELET VOLUME 9.7 FL (7.4-10.4); MONOCYTES # (AUTO) 0.8 X10'3 (0-0.9); MONOCYTES % (AUTO) 10.3 % (2-12); NEUTROPHILS # (AUTO) 6.7 X10'3 (1.8-7.7); NEUTROPHILS % (AUTO) 81.1 % (42-75); PLATELET COUNT 183 X10'3 (140-440); RED CELL DISTRIBUTION WIDTH 17.4 % (11.5-14.5); WHITE BLOOD COUNT 8.2 X10'3 (4.5-11.0)
--- NOTE | 2021-07-27 10:50 | NUR ---
Pt hypotensive with SBP in 70s. HR 130-145. Dr. Velasquez aware. IV Bolus initiated.
[2021-07-27] MEDS ORDERED: normal saline 1000ML IV soln IVB ONE ×2 (11:00→11:05)
[2021-07-27 11:16] LABS: ALANINE AMINOTRANSFERASE 22 U/L (12-78); ALBUMIN 3.7 G/DL (3.4-5.0); ALBUMIN/GLOBULIN RATIO 1.2 (1.1-1.5); ALKALINE PHOSPHATASE 57 IU/L (46-116); ANION GAP 19 (8-16); ASPARTATE AMINO TRANSFERASE 19 U/L (10-37); BLOOD UREA NITROGEN 12 MG/DL (7-18); BUN/CREATININE RATIO 9.9 (5.4-32.0); CALCIUM 8.6 MG/DL (8.5-10.1); CHLORIDE 102 MMOL/L (99-107); CREATININE 1.21 MG/DL (0.60-1.10); GLUCOSE 241 MG/DL (70-104); POTASSIUM 4.1 MMOL/L (3.5-5.1); SODIUM 136 MMOL/L (135-145); TOTAL CARBON DIOXIDE 15.1 MMOL/L (24-32); TOTAL PROTEIN 6.8 G/DL (6.4-8.2); eGFR 61 ML/MIN
[2021-07-27] MEDS ORDERED: LORazepam 2 mg/ml vial IV ONE (12:05)
[2021-07-27] MEDS ORDERED: magnesium 4gm in 100ml NS 100 ML IV PRN (13:10)
[2021-07-27] MEDS ORDERED: insulin Lispro (HumaLOG) vial - multi-dose SQ SCH (13:10)
[2021-07-27] MEDS ORDERED: dextrose 50%-water 50ml dispensing syringe IV PRN ×2 (13:10)
[2021-07-27] MEDS ORDERED: potassium CL 10mEq/100ml bag 100 ML IV PRN (13:10)
[2021-07-27] MEDS ORDERED: DEXTROSE 15 GM of carb/4 tabs (each vial/BOTTLE has 4 tablets) PO PRN ×2 (13:10)
[2021-07-27] MEDS ORDERED: ondansetron/PF 4mg/2ml inj IV PRN (13:10)
[2021-07-27] MEDS ORDERED: acetaminophen 325mg tablet PO PRN (13:10)
[2021-07-27] MEDS ORDERED: magnesium 2GM in 50ml NS 50 ML IV PRN (13:10)
[2021-07-27] MEDS ORDERED: haloperidol lactate 5mg/ml inj IM PRN (13:10)
[2021-07-27] MEDS ORDERED: glucagon, human recombinant 1mg kit SUBCUT PRN (13:10)
[2021-07-27] MEDS ORDERED: mag hydrox/Alum hydrox/simeth 30ml oral suspension PO PRN (13:10)
[2021-07-27] MEDS ORDERED: magnesium hydroxide 30ml (MOM) UD suspension PO PRN (13:10)
[2021-07-27] MEDS ORDERED: haloperidol 5mg tablet PO PRN (13:10)
[2021-07-27] MEDS ORDERED: potassium Cl 20 mEq SR tablet PO PRN ×2 (13:10)
[2021-07-27] MEDS ORDERED: MESSAGE TO PHARMACY PO ONE (13:10)
[2021-07-27] MEDS ORDERED: CLON0.3T36 PO (13:30)
[2021-07-27] MEDS ORDERED: THIA100T66 PO (13:30)
[2021-07-27] MEDS ORDERED: CIPR500T5 PO (13:33)
[2021-07-27] MEDS ORDERED: metoprolol succinate 25mg (24-HOUR) SR. Tablet PO ONE (13:50)
[2021-07-27] MEDS ORDERED: nortriptyline 10mg capsule PO PRN (13:55)
[2021-07-27] MEDS: LORazepam 2 mg/ml vial IV PRN ×2 (15:54→22:09)
--- NOTE | 2021-07-27 15:56 | NUR ---
ASSISTING RN WITH PT CARE, PT C/O DETOX SYMPTOMS "I FEEL SHAKY, NAUSEA, CLAMMY" MEDICATED PER ORDER.
[2021-07-27] MEDS ORDERED: cloNIDine 0.1 mg tablet PO ONE (18:30)
[2021-07-27] MEDS: K and/or MAG REPLACEMENT MC SCH (20:00)
[2021-07-27] MEDS: docusate sod 100mg capsule PO SCH (20:00)
[2021-07-27] MEDS ORDERED: atorvastatin 20mg tablet PO SCH (21:00)
[2021-07-27] MEDS ORDERED: gabapentin 300mg capsule PO SCH (21:00)
[2021-07-27] MEDS ORDERED: Terazosin 1mg capsule PO SCH (21:00)
[2021-07-27] MEDS ORDERED: insulin glargine (Lantus) pen - multi-dose SQ SCH (21:00)
--- NOTE | 2021-07-27 21:35 | NUR ---
Patient arrived from ER and he walked to the bed with assistance of one. He was orientated to the room and instructed on how to use the call light and to not get out of bed on his own but to use the call light.
[2021-07-28 02:00] VITALS: BP 160/73
[2021-07-28 06:00] VITALS: BP 178/82
--- NOTE | 2021-07-28 06:59 | NUR ---
Patient in room PCU 3025. I have received report from RORO PIERSON and had the opportunity to ask questions and assume patient care.
[2021-07-28 07:01] LABS: BASOPHILS % (AUTO) 1.1 % (0-1); EOSINOPHILS # (AUTO) 0.2 X10'3 (0-0.9); EOSINOPHILS % (AUTO) 5.2 % (0-6); HEMATOCRIT 34.4 % (42.0-52.0); HEMOGLOBIN 11.5 g/dl (14.0-17.9); LYMPHOCYTES # (AUTO) 1.5 X10'3 (1.1-4.8); LYMPHOCYTES % (AUTO) 32.6 % (21-51); MEAN CORPUSCULAR HEMOGLOBIN 27.8 PG (27.0-31.0); MEAN CORPUSCULAR HGB CONC 33.3 g/dL (33.0-36.5); MEAN CORPUSCULAR VOLUME 83.5 FL (78-98); MONOCYTES # (AUTO) 0.7 X10'3 (0-0.9); MONOCYTES % (AUTO) 15.1 % (2-12); NEUTROPHILS # (AUTO) 2.1 X10'3 (1.8-7.7); PLATELET COUNT 194 X10'3 (140-440); RED BLOOD COUNT 4.12 X10'6 (4.70-6.10); RED CELL DISTRIBUTION WIDTH 17.7 % (11.5-14.5); WHITE BLOOD COUNT 4.5 X10'3 (4.5-11.0)
[2021-07-28 07:25] LABS: ALANINE AMINOTRANSFERASE 23 U/L (12-78); ALBUMIN 3.3 G/DL (3.4-5.0); ALBUMIN/GLOBULIN RATIO 1.1 (1.1-1.5); ALKALINE PHOSPHATASE 54 IU/L (46-116); ANION GAP 8 (8-16); ASPARTATE AMINO TRANSFERASE 18 U/L (10-37); BILIRUBIN,TOTAL 1.1 MG/DL (0.1-1.0); BLOOD UREA NITROGEN 13 MG/DL (7-18); BUN/CREATININE RATIO 15.1 (5.4-32.0); CALCIUM 8.5 MG/DL (8.5-10.1); CHLORIDE 106 MMOL/L (99-107); CREATININE 0.86 MG/DL (0.60-1.10); GLUCOSE 113 MG/DL (70-104); PHOSPHORUS 4.4 MG/DL (2.3-4.5); POTASSIUM 4.1 MMOL/L (3.5-5.1); SODIUM 140 MMOL/L (135-145); TOTAL CARBON DIOXIDE 25.9 MMOL/L (24-32); TOTAL PROTEIN 6.2 G/DL (6.4-8.2); eGFR 90 ML/MIN
[2021-07-28] MEDS: docusate sod 100mg capsule PO SCH (07:55)
[2021-07-28] MEDS: K and/or MAG REPLACEMENT MC SCH (08:00)
[2021-07-28] MEDS ORDERED: lisinopril 20mg tablet PO SCH (08:00)
[2021-07-28] MEDS ORDERED: folic acid 1mg/0.2ml inj IV SCH (08:00)
[2021-07-28] MEDS ORDERED: metoprolol succinate 25mg (24-HOUR) SR. Tablet PO SCH (08:00)
[2021-07-28] MEDS ORDERED: FLUoxetine 20mg capsule PO SCH (08:00)
[2021-07-28] MEDS ORDERED: gabapentin 300mg capsule PO SCH (08:00)
[2021-07-28] MEDS ORDERED: pantoprazole 40mg Tablet.DR PO SCH (08:00)
[2021-07-28] MEDS ORDERED: cloNIDine 0.1 mg tablet PO SCH (08:00)
--- NOTE | 2021-07-28 08:46 | NUR ---
DM consult: Pt with T2DM, well controlled with A1c 6.5% which is down from 7.8% 06/01 and 8.0% 05/25 per EMR. DM education not warranted at this time. Pt did receive written DM education with F[facility] contact information 06/02 at previous admit. Will continue to follow. Addendum: 07/28/21 at [address] Amended: Links added.
[2021-07-28 11:00] VITALS: BP 162/82
[2021-07-28] MEDS ORDERED: LORA-269 PO (11:30)
--- NOTE | 2021-07-28 12:15 | NUR ---
Patient discharged at 1215 with instructions and verbalizing understanding of instructions. Patient left accompanied by nursing staff going home via private vehicle. The IV cannula was removed intact and the tele monitor was removed. All discharge instructions were given and all questions answered. Patient to set up his own follow up appointment. Patient is stable and appropriiate for discharge.
[2021-07-29] MEDS ORDERED: LORazepam 1 MG tablet PO PRN (13:10)
[2021-07-29] MEDS ORDERED: LORazepam 2 mg/ml vial IV PRN (13:10)
[2021-07-31] MEDS ORDERED: LORazepam 1 MG tablet PO PRN (13:10)
[2021-07-31] MEDS ORDERED: LORazepam 2 mg/ml vial IV PRN (13:10)
[2021-08-01] MEDS ORDERED: thiamine 100mg tablet PO SCH (08:00)
[2021-08-01] MEDS ORDERED: folic acid 1mg tablet PO SCH (08:00)
== END 2021-07-28 12:53 | disposition home or self-care (01) | DRG 640 ==
LOC: ER 10:20 → ED HOLD 13:24 → EDBEDREQ 21:03 → PCU 3S 21:39
PROVIDERS: ADMIT Family Medicine; ATTEND Family Medicine
DX: E86.0 Dehydration (principal); N17.0 Acute kidney failure with tubular necrosis; F10.231 Alcohol dependence with withdrawal delirium; I42.9 Cardiomyopathy, unspecified; R00.0 Tachycardia, unspecified; I48.91 Unspecified atrial fibrillation; E11.9 Type 2 diabetes mellitus without complications; E78.5 Hyperlipidemia, unspecified; I10 Essential (primary) hypertension; F41.9 Anxiety disorder, unspecified; G47.30 Sleep apnea, unspecified; Z60.2 Problems related to living alone; I25.10 Atherosclerotic heart disease of native coronary artery without angina pectoris; Z79.84 Long term (current) use of oral hypoglycemic drugs; Z80.42 Family history of malignant neoplasm of prostate; Z86.79 Personal history of other diseases of the circulatory system; Z98.84 Bariatric surgery status; Z95.810 Presence of automatic (implantable) cardiac defibrillator; Z88.0 Allergy status to penicillin; Z82.49 Family history of ischemic heart disease and other diseases of the circulatory system; Z81.8 Family history of other mental and behavioral disorders; Z79.899 Other long term (current) drug therapy
CPT/HCPCS: 36415; 71045; 80053; 82948; 83036; 83735; 83880; 84100; 84484; 85025; 85610; 87081; 93005; 96374; 96375; 99291; G0378; J1815; J2060; J3490; J7030

== ENCOUNTER 2021-08-03 23:20 | Emergency (ER) | payer MEDICARE, OTHER ==
[~2021-08-03] VITALS: Ht 185.4 cm; Wt 106.8 kg
[~2021-08-03 23:20] MED LIST changes: -CIPR-202 PO; -CLON0.1T2 PO; +CLON0.3T36 PO; -FOLI1TAB27 PO; -GABA300C PO; +LORA-269 PO; -METF-438 PO; -thiamine tablet PO
[2021-08-03] MEDS ORDERED: normal saline 1000ML IV soln IVB ONE (23:25)
[2021-08-03 23:45] LABS: BASOPHILS % (AUTO) 0.5 % (0-1); EOSINOPHILS # (AUTO) 0.1 X10'3 (0-0.9); EOSINOPHILS % (AUTO) 1.6 % (0-6); HEMATOCRIT 38.8 % (42.0-52.0); HEMOGLOBIN 13.1 g/dl (14.0-17.9); LYMPHOCYTES # (AUTO) 2.2 X10'3 (1.1-4.8); LYMPHOCYTES % (AUTO) 31.8 % (21-51); MEAN CORPUSCULAR HEMOGLOBIN 27.7 PG (27.0-31.0); MEAN CORPUSCULAR HGB CONC 33.8 g/dL (33.0-36.5); MEAN CORPUSCULAR VOLUME 81.8 FL (78-98); MEAN PLATELET VOLUME 8.7 FL (7.4-10.4); MONOCYTES # (AUTO) 0.5 X10'3 (0-0.9); MONOCYTES % (AUTO) 7.7 % (2-12); NEUTROPHILS % (AUTO) 58.4 % (42-75); PLATELET COUNT 215 X10'3 (140-440); RED BLOOD COUNT 4.74 X10'6 (4.70-6.10); RED CELL DISTRIBUTION WIDTH 18.4 % (11.5-14.5); WHITE BLOOD COUNT 6.8 X10'3 (4.5-11.0)
[2021-08-04 00:04] LABS: ALANINE AMINOTRANSFERASE 21 U/L (12-78); ALBUMIN 3.6 G/DL (3.4-5.0); ALBUMIN/GLOBULIN RATIO 1.1 (1.1-1.5); ALKALINE PHOSPHATASE 74 IU/L (46-116); ANION GAP 15 (8-16); ASPARTATE AMINO TRANSFERASE 25 U/L (10-37); BILIRUBIN,TOTAL 0.5 MG/DL (0.1-1.0); BLOOD UREA NITROGEN 7 MG/DL (7-18); BUN/CREATININE RATIO 7.1 (5.4-32.0); CHLORIDE 99 MMOL/L (99-107); CREATININE 0.98 MG/DL (0.60-1.10); GLUCOSE 136 MG/DL (70-104); POTASSIUM 4.4 MMOL/L (3.5-5.1); SODIUM 136 MMOL/L (135-145); TOTAL CARBON DIOXIDE 21.7 MMOL/L (24-32); TOTAL PROTEIN 6.9 G/DL (6.4-8.2); eGFR 78 ML/MIN
[2021-08-04 00:12] LABS: MAGNESIUM 2.4 MG/DL (1.5-2.4)
[2021-08-04 00:25] LABS: ETHANOL 0.368 GM/DL (0.0-0.010)
[2021-08-04] MEDS ORDERED: thiamine inj. 100 MG in normal saline 100ml IV soln 100 ML IV ONE (00:45)
[2021-08-04] MEDS ORDERED: folic acid 1mg tablet PO ONE (00:45)
[2021-08-04] MEDS ORDERED: thiamine 100mg tablet PO ONE (00:45)
--- NOTE | 2021-08-04 00:49 | NUR ---
Spoke with patient's sister Thais to give update. She said to call her anytime and will be calling again for an update around 5am. Her phone number is [phone].
[2021-08-04 00:50] LABS: CLARITY,URINE CLEAR (Clear); COLOR,URINE YELLOW (Yellow); GLUCOSE, URINE NEGATIVE (Neg); KETONES,URINE NEGATIVE (Neg); LEUKOCYTE ESTERASE ,URINE NEGATIVE (Neg); NITRITES, URINE NEGATIVE (Neg); OCCULT BLOOD,URINE NEGATIVE (Neg); PH,URINE 5.5 (4.8-8.0); PROTEIN,URINE NEGATIVE (Neg); UA COLLECTION TYPE URINAL; UROBILINOGEN,URINE 0.2 E.U/dL (0.2-1.0)
[2021-08-04] MEDS ORDERED: thiamine 100mg/ml 2ml inj. IV ONE (00:56)
[2021-08-04 01:37] VITALS: BP 179/110
[2021-08-04 02:08] LABS: URINE AMPHETAMINE SCREEN NEGATIVE (Neg); URINE BARBITUATE SCREEN NEGATIVE (Neg); URINE BENZODIAZEPINES SCREEN NEGATIVE (Neg); URINE CANNABINOID SCREEN NEGATIVE (Neg); URINE COCAINE SCREEN NEGATIVE (Neg); URINE METHADONE SCREEN NEGATIVE (Neg); URINE OPIATE SCREEN NEGATIVE (Neg); URINE PHENCYCLIDINE SCREEN NEGATIVE (Neg)
[2021-08-04] MEDS ORDERED: chlordiazePOXIDE 25mg capsule PO ONE (03:05)
--- NOTE | 2021-08-04 03:21 | NUR ---
Called Pt's sister Thais to inform her that he is ready for discharge. She has confirmed that she will be coming to pick him up right now.
[2021-08-04] MEDS ORDERED: metoprolol succinate 25mg (24-HOUR) SR. Tablet PO ONE (03:27)
[2021-08-04] MEDS ORDERED: metoprolol succinate 25mg (24-HOUR) SR. Tablet PO SCH (08:00)
== END 2021-08-04 03:52 | disposition home or self-care (01) ==
LOC: ER 23:21
DX: F10.129 Alcohol abuse with intoxication, unspecified (principal); I10 Essential (primary) hypertension; R41.82 Altered mental status, unspecified; G47.30 Sleep apnea, unspecified; E11.9 Type 2 diabetes mellitus without complications; Z95.0 Presence of cardiac pacemaker; Z98.84 Bariatric surgery status; Z72.89 Other problems related to lifestyle; Z60.2 Problems related to living alone; Z91.19 Patient's noncompliance with other medical treatment and regimen; Z88.0 Allergy status to penicillin; Z79.899 Other long term (current) drug therapy; Y90.8 Blood alcohol level of 240 mg/100 ml or more
CPT/HCPCS: 36415; 71045; 80053; 80305; 80320; 81003; 83735; 83880; 84484; 85025; 93005; 96361; 96374; 99285; J3411; J7030; 96360

== ENCOUNTER 2021-08-26 09:07 | Emergency (ER) | payer OTHER, MEDICARE ==
[~2021-08-26] VITALS: Ht 185.4 cm; Wt 105.0 kg
[2021-08-26] MEDS ORDERED: LORazepam 2 mg/ml vial IV ONE (09:30)
[2021-08-26] MEDS ORDERED: normal saline 1000ML IV soln IVB ONE (09:30)
[2021-08-26] MEDS ORDERED: thiamine 100mg/ml 2ml inj. IV ONE (09:35)
[2021-08-26] MEDS ORDERED: ondansetron/PF 4mg/2ml inj IV ONE (09:40)
[2021-08-26] MEDS ORDERED: levetiracetam inj 1,000 MG in normal saline 100ml IV soln 90 ML IV ONE (09:40)
[2021-08-26] MEDS ORDERED: levetiracetam-NS 1000mg/100ml 100 ML IV ONE (09:41)
--- NOTE | 2021-08-26 09:45 | NUR ---
Pt pale, diaphoretic, lying flat on stretcher, states he feels better than upon arrival.
[2021-08-26 10:08] LABS: BASOPHILS % (AUTO) 0.3 % (0-1); EOSINOPHILS % (AUTO) 0.1 % (0-6); HEMATOCRIT 27.6 % (42.0-52.0); HEMOGLOBIN 9.1 g/dl (14.0-17.9); LYMPHOCYTES # (AUTO) 0.9 X10'3 (1.1-4.8); LYMPHOCYTES % (AUTO) 8.4 % (21-51); MEAN CORPUSCULAR HEMOGLOBIN 28.4 PG (27.0-31.0); MEAN CORPUSCULAR VOLUME 85.8 FL (78-98); MEAN PLATELET VOLUME 9.3 FL (7.4-10.4); MONOCYTES # (AUTO) 0.5 X10'3 (0-0.9); MONOCYTES % (AUTO) 5.3 % (2-12); NEUTROPHILS # (AUTO) 8.8 X10'3 (1.8-7.7); NEUTROPHILS % (AUTO) 85.9 % (42-75); PLATELET COUNT 192 X10'3 (140-440); RED BLOOD COUNT 3.22 X10'6 (4.70-6.10); WHITE BLOOD COUNT 10.3 X10'3 (4.5-11.0)
[2021-08-26 10:09] LABS: ALANINE AMINOTRANSFERASE 23 U/L (12-78); ALBUMIN 3.1 G/DL (3.4-5.0); ALKALINE PHOSPHATASE 65 IU/L (46-116); ANION GAP 18 (8-16); ASPARTATE AMINO TRANSFERASE 23 U/L (10-37); BILIRUBIN,TOTAL 1.2 MG/DL (0.1-1.0); BLOOD UREA NITROGEN 32 MG/DL (7-18); BUN/CREATININE RATIO 20.6 (5.4-32.0); CALCIUM 8.3 MG/DL (8.5-10.1); CHLORIDE 99 MMOL/L (99-107); CREATININE 1.55 MG/DL (0.60-1.10); GLUCOSE 269 MG/DL (70-104); LIPASE 88 U/L (73-393); MAGNESIUM 1.9 MG/DL (1.5-2.4); SODIUM 137 MMOL/L (135-145); TOTAL CARBON DIOXIDE 20.3 MMOL/L (24-32); TOTAL PROTEIN 6.3 G/DL (6.4-8.2); eGFR 46 ML/MIN
[2021-08-26] MEDS ORDERED: chlordiazePOXIDE 25mg capsule PO ONE (10:20)
--- NOTE | 2021-08-26 10:22 | NUR ---
Pt on iPad. No apparent distress or needs at this time.
[2021-08-26 10:29] LABS: ANISOCYTOSIS 3+; ELLIPTOCYTES FEW; PLATELET ESTIMATE NORMAL; POLYCHROMASIA FEW; STOMATOCYTES FEW; TEAR DROP CELLS FEW
--- NOTE | 2021-08-26 11:39 | NUR ---
Pt ambulated and ready to be discharged per MD.
[2021-08-26] MEDS ORDERED: ONDA4TAB12 PO (11:42)
--- NOTE | 2021-08-26 11:56 | NUR ---
Pt cleared and ready for discharge. Called ride.
[2021-08-26 12:36] VITALS: BP 133/81
== END 2021-08-26 12:38 | disposition home or self-care (01) ==
LOC: ER 09:07
DX: E86.0 Dehydration (principal); R19.7 Diarrhea, unspecified; R61 Generalized hyperhidrosis; R11.2 Nausea with vomiting, unspecified; I10 Essential (primary) hypertension; G47.30 Sleep apnea, unspecified; E11.9 Type 2 diabetes mellitus without complications; Z95.0 Presence of cardiac pacemaker; Z95.5 Presence of coronary angioplasty implant and graft; Z72.89 Other problems related to lifestyle; Z88.0 Allergy status to penicillin; Z79.899 Other long term (current) drug therapy
CPT/HCPCS: 80053; 83690; 83735; 84145; 85008; 85025; 93005; 96374; 96375; 99285; J1953; J2060; J2405; J3411; J7030; 96361